=== PATIENT | female | born 1990 | race Caucasian/White ===

== ENCOUNTER 2023-11-04 09:14 | Inpatient (IN) | payer OTHER, SELFPAY ==
--- OUTSIDE RECORDS SUMMARY | 2023-11-04 09:23 | XMS_ITS | CCD ---
Author Organization [facility] Care Team Providers Care Working Supervisor Name Role Phone Yohana De Leon Primary Care Provider Unavailable Primary Care Provider Unavailabl e FLORO, FAY Primary Care Unavailable MISC, DR SANDOVAL Admitting Unavailable MISC, DR SANDOVAL Attending Unavailable MISC, DR SANDOVAL Consulting Unavailable FLORO, FAY Admitting Unavailable FLORO, FAY Attending Unavailable FLORO, FAY Consulting Unavailable FLORO, FAY Primary Care Unavailable Unavailable Primary Care Provider Unavailabl MICHELLE Ochoa Attending Unavailabl e Unavailable Primary Care Provider Unavailabl e EJESTHOLLY DUFF Attending Unavailable HIESTANDHOLLY Referring Unavailable HIESTHOLLY DUFF Primary Care Unavailable FLORO, JASMINA L Referring Unavailable FLORO, JASMINA L Attending Unavailable FLORO, JASMINA L Attending Unavailable FLORO, JASMINA L Attending Unavailable FLORO, JASMINA L Referring Unavailable FLORO, JASMINA L Attending Unavailable FLORO, JASMINA L Attending Unavailable FLORO, JASMINA L Attending Unavailable FLORO, JASMINA L Referring Unavailable FLORO, JASMINA L Attending Unavailable FLORO, JASMINA L Attending Unavailable FLORO, JASMINA L Attending Unavailable FLORO, JASMINA L Attending Unavailable FLORO, JASMINA L Attending Unavailable Allergies Allergy Classification Reported Allergen(s) Allergy Type Date of Onset Reaction(s) Facility Sulfamethoxazole / Trimethoprim (1 source) Sulfamethoxazole / Trimethoprim Drug Allergy 2 Rash [facility] (6 sources) Sulfamethoxazole / Trimethoprim; Translations: [SULFAMETHOXAZOLE-TR IMETHOPRIM] Drug All[facility] 2 [facility] (1 source) Sulfamethoxazole / Trimethoprim Drug Allergy 1 [facility] Repository Medications Current Medications Medication Drug Class(es) Dates Sig (Normalized) Sig (Original) acyclovir 400 mg oral tablet (3 sources) Herpesvirus Nucleoside Analog DNA Polymerase Inhibitor, Herpes Simplex Virus Nucleoside Analog DNA Polymerase Inhibitor, Herpes Zoster Virus Nucleoside Analog DNA Polymerase Inhibitor take 1 tablet by mouth once daily acyclovir (ZOVIRAX) 400 MG tablet Take 400 mg by mouth daily 0 Active aspirin 81 mg chewable tablet (2 sources) Platelet Aggregation Inhibitor, Nonsteroidal Anti-inflammatory Drug take 1 tablet by mouth once daily aspirin 81 MG chewable tablet Take 81 mg by mouth daily 0 Active cetirizine hydrochloride 10 mg oral tablet (5 sources) Histamine-1 Receptor Antagonist Start: 12-17-2015 take 1 tablet by mouth once daily cetirizine (ZYRTEC) 10 MG tablet Indications: Other seasonal allergic rhinitis Take 1 tablet by mouth daily 90 tablet 3 12/17/2015 Active dicyclomine hydrochloride 20 mg oral tablet (3 sources) Anticholinergic Start: 08-11-2018 take 1 tablet by mouth four times daily dicyclomine (BENTYL) 20 MG tablet Take 1 tablet by mouth 4 times daily for 7 days 28 tablet 0 08/11/2018 Active Inulin (3 sources) take 1 tablet by mouth once daily Inulin (FIBER CHOICE FRUITY BITES PO) Take 1 tablet by mouth daily 0 Active metFORMIN hydrochloride 500 mg oral tablet (2 sources) Biguanide Start: 01-25-2023 take 1 tablet by mouth in the morning metFORMIN (Glucophage) 500 MG tablet Indications: Weight gain , Irregular periods Take 1 tablet (500 mg) by mouth in the morning and 1 tablet (500 mg) in the evening. Take with meals. 60 tablet 2 01/25/2023 Active Multiple Vitamins-Minerals (THERAPEUTIC MULTIVITAMIN-MINERA LS) tablet (3 sources) take 1 tablet by mouth once daily Multiple Vitamins-Minerals (THERAPEUTIC MULTIVITAMIN-MINERA LS) tablet Take 1 tablet by mouth daily 0 Active ondansetron 8 mg disintegrating oral tablet (2 sources) Serotonin-3 Receptor Antagonist Start: 04-05-2023 End: 05-05-2023 take 1 tablet by mouth every eight hours for nausea ondansetron ODT (Zofran-ODT) 8 MG disintegrating tablet Indications: Nausea/vomiting in Take 1 tablet (8 mg) by mouth every 8 (eight) hours if needed for nausea or vomiting 20 tablet 1 04/05/2023 05/05/2023 Active Completed/Discontinued Medications Medication Drug Class(es) Dates Sig (Normalized) Sig (Original) acetaminophen 500 mg oral tablet (1 source) Start: 02-28-2021 End: 02-28-2021 acetaminophen (TYLENOL) tablet 1,000 mg Start: 02-28-2021 End: 02-28-2021 acetaminophen (TYLENOL) tabl et 1,000 mg ibuprofen 600 mg oral tablet (3 sources) Nonsteroidal Anti-inflammatory Drug Start: 04-23-2016 End: 02-28-2021 take 1 tablet by mouth every eight hours as needed for pain ibuprofen (ADVIL;MOTRIN) 600 MG tablet Take 1 tablet by mouth every 8 hours as needed for Pain 20 tablet 0 04/23/2016 02/28/2021 Discontinued (LIST CLEANUP) 50 ml sodium chloride 9 mg/ml injection (1 source) Start: 07-26-2020 End: 07-27-2020 0.9 % sodium chloride bolus Problems Active Problems Problem Classification Problem Date Documented Date Episodic/Chronic 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; Translations: [Other specified congenital malformations of intestine] Onset: 01-09-2016 01-09-2016 Chronic Nausea and vomiting (1 source) Nausea and vomiting; Translations: [Nausea with vomiting, unspecified] Episodic Other complications of (2 sources) Vaginal discharge; Translations: [Other specified related conditions, third trimester] 02-09-2021 Episodic Other injuries and conditions due to external causes (1 source) Injury of right wrist; Translations: [Unspecified injury of right wrist, hand and finger(s), initial encounter] Episodic Other injuries and conditions due to external causes (1 source) Unspecified injury of right wrist, hand and finger(s), initial encounter; Translations: [Unspecified injury of right wrist, hand and finger(s), initial encounter] Onset: 09-30-2022 Episodic Unclassified (2 sources) CONTACT W/AND (SUSP) EXPOS COVID-19; Translations: [CONTACT W/AND (SUSP) EXPOS COVID-19] Onset: 01-03-2021 Unclassified (1 source) COUGH, UNSPECIFIED; Translations: [COUGH, UNSPECIFIED] Onset: 01-03-2021 Viral infection (4 sources) COVID-19; Translations: [COVID-19] Onset: 01-02-2021 Past or Other Problems Problem Classification Problem Date Documented Date Episodic/Chronic Abdominal pain (4 sources) Right lower quadrant pain; Translations: [Right lower quadrant pain] Onset: 02-28-2021 Episodic Hemorrhoids (4 sources) External hemorrhoids; Translations: [Residual hemorrhoidal skin tags] Onset: 01-09-2016 01-09-2016 Episodic Immunizations and screening for infectious disease (1 source) Encounter for immunization; Translations: [ENCOUNTER FOR IMMUNIZATION] Onset: 01-15-2021 Episodic Other female genital disorders (4 sources) Irritable uterus; Translations: [Noninflammatory disorder of uterus, unspecified] Resolved: 08-05-2015 08-05-2015 Episodic Other and delivery including normal (6 sources) Delivery normal; Translations: [Encounter for full-term uncomplicated delivery] Onset: 03-12-2021 Resolved: 08-05-2015 08-05-2015 Episodic Residual codes; unclassified (4 sources) Gestation period, 35 weeks; Translations: [35 weeks gestation of ] Resolved: 08-05-2015 08-05-2015 Episodic Unclassified (1 source) CONTACT W/AND (SUSP) EXPOS COVID-19; Translations: [CONTACT W/AND (SUSP) EXPOS COVID-19] Onset: 12-31-2020 Results Test Name Value Interpretation Reference Range Facility US OB FOLLOW UP TRANSABDOMIN AL APPROACHon 09-01-2023 OB FOLLOW UP TRANSABDOMINAL APPROACH FINDINGS: A single, live intrauterine is present with normal cardiac rate of 145 beats per minute. Normal activity and amniotic fluid volume. Amniotic fluid index is 17 cm. Morphology is grossly normal. The cervix is long and closed, 3.9 cm. The placenta is posterior, not associated with the cervical os. The current sonographic age is 30 weeks and 0 days, based on the following measurements: BPD 7.4 cm (29 weeks, 5 days) Head Circumference 28.1 cm (30 weeks, 6 days) Abdominal Circumference 25.5 cm (29 weeks, 5 days) Femur Length 5.6 cm (29 weeks, 4 days) Presentation Breech Placenta Posterior Grade I Weight (g) by Percentile 39.4 % * These measurements result in an estimated date of delivery of November 10, 2023. The current estimated weight is 1453 grams (3 pounds, 3 ounces). IMPRESSION: 1. Single, live intrauterine , current sonographic age of 30 weeks and 0 days, with an estimated date of delivery of November 10, 2023 2. Current estimated weight 1453 grams (3 pounds, 3 ounces) 3. Breech presentation * Estimated Weight (g) by Percentile is based upon an accurate estimated age based on last menstrual period. TRANSCRIBED BY: ELECTRONICALLY SIGNED BY: Rob Blank MD Normal Not Available US OB 14+ WEEKS ANATOMY SCAN on 06-23-2023 US OB 14+ WEEKS ANATOMY SCAN FINDINGS: A single, live intrauterine is present with normal cardiac rate of 136 beats per minute. Normal activity and amniotic fluid volume. Amniotic fluid index is 15 cm. Morphology is grossly normal. The cervix is long and closed, 3.4 cm. The placenta is posterior, not associated with the cervical os. The current sonographic age is 19 weeks and 4 days, based on the following measurements: BPD 4.5 cm ( 19 weeks, 5 days) Head Circumference 17.1 cm (19 weeks, 5 days) Abdominal Circumference 14.4 cm (19 weeks, 5 days) Femur Length 3.0 cm ( 19 weeks,1 days) Presentation Cephalic Placenta posterior These measurements result in an estimated date of delivery of November 13, 2023 The current estimated weight is 295 grams +/- grams ( pound,10 ounces). Estimated weight by percentile 31.9% IMPRESSION: Single, live intrauterine , current sonographic age of 19 weeks and 4 days, with an estimated date of delivery of November 13, 2023. Prior estimated delivery was November 12, 2023 from April 05, 2023 examination. TRANSCRIBED BY: ELECTRONICALLY SIGNED BY: Rob Blank MD Normal Not Available US OB < 14 WEEKS EARLYon US OB < 14 WEEKS EARLY CLINICAL HISTORY: Amenorrhea. COMPARISON: 01/25/2023. TECHNIQUE: Transvaginal ultrasound was performed of the pelvis. RESULT: An approximately 3.1 cm in average dimension gestational sac is present within the left aspect of the uterine body/fundus, without significant surrounding subchorionic hemorrhage. Yolk sac visualized. Natural Steps rump length measures 1.9 cm, which corresponds to 8 weeks 3 days. The estimated date of delivery by measurements is: 11/12/2023. The estimated date of delivery by LMP is: 10/26/2023. cardiac activity measures approximately 174, without visualized arrhythmia. The cervix appears closed, measuring approximately 3.6 cm. Nabothian cysts. There is no significant free fluid, or other findings of concern. The uterus measures: 13.0 x 8.3 cm. The ovaries were not visualized secondary to bowel gas. IMPRESSION: SINGLE LIVE INTRAUTERINE CORRESPONDING TO 8 weeks 3 days NO OTHER FINDINGS OF CONCERN. ELECTRONICALLY SIGNED BY: Simeon Payton MD Normal Not Available US PELVIS TRANSVAGINALon US PELVIS TRANSVAGINAL FINDINGS: Transvaginal imaging Uterus measures 9.8 x 5.5 x 4.7 cm and is anteverted in orientation. Uterus normal in size, shape, and echogenicity. Endometrium normal measuring 10.5 mm. Nabothian cyst visualized. Right ovary measures 1.7 x 2.4 x 1.3 cm. Left ovary measures 2.5 x 2.0 x 1.7 cm. Bilateral ovaries normal in size, shape, echogenicity, and color flow. No free fluid No adnexal masses. IMPRESSION: Impression: Negative pelvic ultrasound. ELECTRONICALLY SIGNED BY: Basilio Luciano MD Normal Not Available No Panel Informationon 09-30 Radiology Study observation (narrative) [facility] XR SHOULDER RIGHT (MIN 2 VIE WS)on 09-30-2022 XR SHOULDER RIGHT (MIN 2 VIEWS) EXAMINATION: 2 XRAY VIEWS OF THE RIGHT SHOULDER 09/30/2022 12:05 am COMPARISON: None. HISTORY: ORDERING SYSTEM PROVIDED HISTORY: fall TECHNOLOGIST PROVIDED HISTORY: fall Initial evaluation. FINDINGS: No acute osseous abnormality seen of the right shoulder. The glenohumeral and acromioclavicular joints appear maintained without evidence of dislocation. The soft tissues demonstrate no acute abnormality. IMPRESSION: No acute fracture or dislocation clearly identified of the right shoulder. Interpreted by: Hubert Hoffman MD Signed by: Hubert Hoffman MD 09/30/22 Final result Normal [facility] No acute fracture or dislocation clearly identified of the right shoulder. [facility] R[facility] CONSOLIDATED EXAMINATION: 2 XRAY VIEWS OF THE RIGHT SHOULDER 09/30/2022 12:05 am COMPARISON: None. HISTORY: ORDERING SYSTEM PROVIDED HISTORY: fall TECHNOLOGIST PROVIDED HISTORY: fall Initial evaluation. FINDINGS: No acute osseous abnormality seen of the right shoulder. The glenohumeral and acromioclavicular joints appear maintained without evidence of dislocation. The soft tissues demonstrate no acute abnormality. [facility] Hubert Hoffman MD - 09/30/2022 EXAMINATION: 2 XRAY VIEWS OF THE RIGHT SHOULDER 09/30/2022 12:05 am COMPARISON: None. HISTORY: ORDERING SYSTEM PROVIDED HISTORY: fall TECHNOLOGIST PROVIDED HISTORY: fall Initial evaluation. FINDINGS: No acute osseous abnormality seen of the right shoulder. The glenohumeral and acromioclavicular joints appear maintained without evidence of dislocation. The soft tissues demonstrate no acute abnormality. IMPRESSION: No acute fracture or dislocation clearly identified of the right shoulder. [facility] XR WRIST RIGHT (MIN 3 VIEWS) on 09-30-2022 XR WRIST RIGHT (MIN 3 VIEWS) EXAMINATION: 3 XRAY VIEWS OF THE RIGHT WRIST 09/30/2022 12:05 am COMPARISON: None. HISTORY: ORDERING SYSTEM PROVIDED HISTORY: fall TECHNOLOGIST PROVIDED HISTORY: fall Initial evaluation. FINDINGS: There is question of cortical irregularity in the region of the scaphoid waist. Otherwise, the osseous structures appear intact. The joint spaces appear maintained. The soft tissues demonstrate no acute abnormality. IMPRESSION: 1. Question of cortical irregularity in the region of the scaphoid waist. Suggest correlation with snuffbox tenderness. 2. Otherwise, no acute osseous abnormality seen of the right wrist. Interpreted by: Hubert Hoffman MD Signed by: Hubert Hoffman MD 09/30/22 Final result Normal [facility] 1. Question of cortical irregularity in the region of the scaphoid waist. Suggest correlation with snuffbox tenderness. 2. Otherwise, no acute osseous abnormality seen of the right wrist. [facility] EXAMINATION: 3 XRAY VIEWS OF THE RIGHT WRIST 09/30/2022 12:05 am COMPARISON: None. HISTORY: ORDERING SYSTEM PROVIDED HISTORY: fall TECHNOLOGIST PROVIDED HISTORY: fall Initial evaluation. FINDINGS: There is question of cortical irregularity in the region of the scaphoid waist. Otherwise, the osseous structures appear intact. The joint spaces appear maintained. The soft tissues demonstrate no acute abnormality. [facility] Hubert Hoffman MD - 09/30/2022 EXAMINATION: 3 XRAY VIEWS OF THE RIGHT WRIST 09/30/2022 12:05 am COMPARISON: None. HISTORY: ORDERING SYSTEM PROVIDED HISTORY: fall TECHNOLOGIST PROVIDED HISTORY: fall Initial evaluation. FINDINGS: There is question of cortical irregularity in the region of the scaphoid waist. Otherwise, the osseous structures appear intact. The joint spaces appear maintained. The soft tissues demonstrate no acute abnormality. IMPRESSION: 1. Question of cortical irregularity in the region of the scaphoid waist. Suggest correlation with snuffbox tenderness. 2. Otherwise, no acute osseous abnormality seen of the right wrist. [facility] XR WRIST RIGHT (MIN 3 VIEWS) Ordered By: Hubert Hoffman on 09-30-2022 [facility] Work Phone: Hemoglobin A1Con 04-28-2021 EAG 91.06 Normal [facility] [employer] Clerk Comment on above: Performed By: #### A 1C #### [facility] [address] [place], [place] [id number] HbA1c (Bld) [Mass fraction] 4.8 % Normal 4.0-6.0 [facility] [employer] Clerk Comment on above: Performed By: #### A 1C #### [facility] [address] [place], [place] [id number] Q - INSULIN,SERUMon 04-28-19 22 INSULIN 4.0 uIU/mL Normal [facility] [employer] Clerk Comment on above: Order Comment: [facility] performed at: [facility], [facility], [address] [place] [address], [address] [place] [address], [id number], Piper Helper: Kendall Moyer MD [facility] Collection Date/Time: [id number] [facility] Results Received Date/Time: [id number] [facility] Reported Date/Time: [id number] FASTING: NO Result Comment: Refe rence Range < or = 19.6 Risk: Optimal < or = 19.6 Moderate NA High >19.6 Adult cardiovascular event risk category cut points (optimal, moderate, high) are based on [facility] population data from 02/2011. This insulin assay shows strong cross-reactivity for some insulin analogs (lispro, aspart, and glargine) and much lower cross-reactivity with others (detemir, glulisine). Performed By: #### 5 61, 746X, [id number] #### [facility] [address] [place] [address] Q - PROLACTINon 04-28-2021 PROLACTIN 195.3 ng/mL High [facility] Comment on above: Order Comment: [facility] performed at: [facility], [employer] [facility], [address] [facility], [address] [place], [address], Piper Helper: Kendall Moyer MD [facility] Collection Date/Time: [facility] Results Received Date/Time: [facility] Reported Date/Time: FASTING: NO Result Comment: Refe rence Range Females Non- 3.0-30.0 10.0-209.0 Postmenopausal 2.0-20.0 Performed By: #### 5 61, 746X, [id number] #### [facility] [address] [place] [address] Q - TESTOSTERONE,FREE (LC/MS /MS)on 04-28-2021 TESTOSTERONE, FREE 1.5 pg/mL Normal 0.2-5.0 [facility] Comment on above: Order Comment: [facility] performed at: [facility], [employer], [address], [place], [place], , Piper Helper: Vince Dan M.D.,PhD [facility] Collection Date/Time: [facility] Results Received Date/Time: [facility] Reported Date/Time: FASTING: NO Result Comment: The concentration of free testosterone is derived from a mathematical model using total testosterone by LCMSMS, sex hormone binding globulin and albumin. This test was developed and its analytical performance characteristics have been determined by [facility] [place], [place]. It has not been cleared or approved by the U.S. Food and Drug Administration. This assay has been validated pursuant to the CLIA regulations and is used for clinical purposes. Performed By: #### 5 61, 746X, [id number] #### [facility] [address] [place] [address] TSH w/ Reflex to Free T4on 0 04-28-2021 TSH 1.490 uIU/mL Normal 0.400-4.500 [facility] [employer] Clerk Comment on above: Performed By: #### T SH reflex FT4 #### [facility] [address] [place], [place] [id number] Microscopic Urinalysison - [facility] Amorphous, UA NOT REPORTED None [facility], [facility]A TRACE Abnormal None [facility] Casts UA NOT REPORTED /LPF [facility] Crystals, UA NOT REPORTED None /HPF [facility] th Epithelial Cells UA 2 TO 5 [facility] Interpretation and review of laboratory results Abnormal [facility] Mucus, UA NOT REPORTED None [facility] Other Observations UA NOT REPORTED NOT REQ. M [facility] RBC, UA 0 TO 2 [facility] Renal Epithelial, UA NOT REPORTED 0 /HPF [facility] Trichomonas, UA NOT REPORTED None [facility] WBC, UA 2 TO 5 [facility] Yeast, UA NOT REPORTED None [facility] Q - SURESWAB HSV 1/2 mRNA TM Aon 02-28-2021 HSV 1 Not detected Normal Not Detected [facility] [employer] Clerk Comment on above: Order Comment: [facility] performed at: [facility], [facility] [address], [place], [place], , Piper Helper: Vince Dan M.D.,PhD [facility] Collection Date/Time: [facility] Results Received Date/Time: [facility] Reported Date/Time: Performed By: #### 9 0570 #### [facility] [address] [place] [address] HSV 2 Not detected Normal Not Detected [facility] [employer] Clerk Comment on above: Order Comment: [facility] performed at: [facility], [address], [place], [place], , Piper Helper: Vince Dan M.D.,PhD [facility] Date/Time: [facility] Results Received Date/Time: [id number] [facility] Reported Date/Time: [id number] Performed By: #### 9 0570 #### [facility] [address] [place] [address] Urinalysison 02-28-2021 Bilirubin Urine Negative NEGATIVE [facility] Color, UA Yellow Yellow [facility] Glucose, Ur Negative NEGATIVE [facility] Interpretation and review of laboratory results Abnormal [facility] Ketones Ql (U) TRACE Abnormal NEGATIVE [facility] Leukocyte esterase Test strip Ql (U) Negative NEGATIVE [facility] Nitrite, Urine Negative NEGATIVE [facility] pH, UA 6.0 [facility] Protein, UA Negative NEGATIVE [facility] Specific [place], UA >1.030 [facility] Turbidity UA Clear Clear [facility] Urinalysis Comments NOT REPORTED [facility] Urine Hgb Negative NEGATIVE [facility] Urobilinogen, Urine Normal Normal [facility] Urinalysison 02-08-2021 Bilirubin Urine Negative NEGATIVE [facility] Color, UA Yellow Yellow [facility] Glucose, Ur Negative NEGATIVE [facility] Ketones Ql (U) Negative NEGATIVE [facility] Leukocyte esterase Test strip Ql (U) Negative NEGATIVE [facility] Nitrite, Urine Negative NEGATIVE [facility] pH, UA 6.0 [facility] Protein, UA Negative NEGATIVE [facility] Specific [place], UA 1.020 [facility] Turbidity UA Clear Clear [facility] Urinalysis Comments NOT REPORTED [facility] Urine Hgb Negative NEGATIVE [facility] Urobilinogen, Urine Normal Normal [facility]20 SARS-CoV-2 (COVID-19) RNA FRANK+probe Ql (Unsp spec) Detected Critically abnormal NOT DETECTED [facility] Comment on above: Result Comment: This test is not yet approved or cleared by the [place] FDA. When there are no FDA-approved or cleared tests available, and other criteria are met, FDA can make tests available under an emergency access mechanism called an Emergency Use Authorization (EUA). The EUA for this test is supported by the [place] of Health and Human Service's (HHS's) declaration that circumstances exist to justify the emergency use of in vitro diagnostics for the detection and/or diagnosis of the virus that causes COVID-19. This EUA will remain in effect (meaning this test can be used) for the duration of the COVID-19 declaration justifying emergency of IVDs, unless it is terminated or revoked by FDA (after which the test may no longer be used). Performed By: #### C [facility] #### [facility] [address] [address] [address] Milena Chiu ABO, External ResultOrdered By: Rose Marie Hurd on 08-20-2020 ABO, External Result [employer] C. Trachomatis, External Res ulvirtua [facility] 08-20-2020 C. Trachomatis, External Result Not detected [employer] Phone: HIV, External Resulton 08-20 HIV, External Result Non-Reactive [employer] Phone: Hepatitis B, External Result on 08-20-2020 Hep B, External Result Negative [employer] Phone: N. Gonorrhoeae, External Res ulton 08-20-2020 N. Gonorrhoeae, External Result Not detected [employer] Phone: No Panel InformationOrdered By: Rose Marie Hurd on 08-20-2020 [employer] No Panel Informationon 08-20 [employer] Phone: RPR, External Labon 08-21-19 21 RPR, External Result Non-Reactive [employer] Phone: Rh Factor, External Resulton 08-20-2020 Rh Factor, External Result Positive [employer] Phone: Rubella Titer, External Resu lton 08-20-2020 Rubella Titer, External Result not immune [employer] Phone: COVID-19, RapidOrdered By: Hilaria Brooks on 07-27-2020 SARS-CoV-2 (COVID-19) RNA FRANK+probe Ql (Unsp spec) Not detected Not Detected [employer] Phone: Comment on above: Rapid NAAT: The specimen is NEGATIVE for SARS-CoV-2, the novel coronavirus associated with COVID-19. The ID NOW COVID-19 assay is designed to detect the virus that causes COVID-19 in patients with signs and symptoms of infection who are suspected of COVID-19. An individual without symptoms of COVID-19 and who is not shedding SARS-CoV-2 virus would expect to have a negative (not detected) result in this assay. Negative results should be treated as presumptive and, if inconsistent with clinical signs and symptoms or necessary for patient management, should be tested with an alternative molecular assay. Negative results do not preclude SARS-CoV-2 infection and should not be used as the sole basis for patient management decisions. Fact sheet for Healthcare Providers: https://www.fda.gov/media/571748/download Fact sheet for Patients: https://www.fda.gov/media/549556/download Methodology: Isothermal Nucleic Acid Amplification Specimen Description .NASOPHARYNGEAL SWAB [employer] Phone: Rapid influenza A/B antigens Ordered By: Rodrigo Brooks on 07-27-2020 Direct Exam NEGATIVE for Influenza A + B antigens. PCR testing to confirm this result is available upon request. Specimen will be saved in the laboratory for 7 days. Please call [phone] if PCR testing is indicated. [employer] Phone: Special Requests NOT REPORTED [employer] Phone: Specimen Description .NASOPHARYNGEAL SWAB [employer] Phone: CBC auto differentialOrdered By: Rodrigo Brooks on 07-26-2020 Absolute Eos # 0.09 [facility] Work Phone: Absolute Immature Granulocyte <0.03 [employer] Work Phone: Absolute Lymph # 2.93 [facility] Work Phone: Absolute Stark # 0.57 [facility] Work Phone: Basophils (Bld) [#/Vol] 10*3/uL [employer] Work Phone: Basophils/100 WBC (Bld) 0 % 0 - 2 % [employer] Phone: Differential Type NOT REPORTED [employer] Phone: Eosinophils/100 WBC (Bld) 1 % 1 - 4 % [employer] Phone: Hematocrit (Bld) [Volume fraction] 42.1 % 36.3 - 47.1 % [employer] Phone: Hemoglobin.gastrointes tinal spec 1 Ql (Stl) 14.5 g/dL 11.9 - 15.1 g/dL [employer] Phone: Immature granulocytes/100 WBC (Bld) 0 % 0 [employer] Phone: Lymphocytes/100 WBC (Bld) 35 % 24 - 43 % [employer] Phone: MCH (RBC) [Entitic mass] 32.0 pg 25.2 - 33.5 pg [employer] Phone: MCHC (RBC) [Mass/Vol] 34.4 g/dL 28.4 - 34.8 g/dL [employer] Phone: MCV (RBC) [Entitic vol] 92.9 fL 82.6 - 102.9 fL [employer] Phone: Monocytes/100 WBC (Bld) 7 % 3 - 12 % [employer] Phone: NRBC Automated 0.0 0.0 per 100 WBC [employer] Phone: Platelet distribution width (Bld) [Ratio] 12.9 % 11.8 - 14.4 % [employer] Phone: Platelet Estimate NOT REPORTED [employer] Phone: Platelet mean volume (Bld) [Entitic vol] 11.4 fL 8.1 - 13.5 fL [employer] Phone: Platelets (Bld) [#/Vol] 199 10*3/uL [employer] Phone: RBC (Bld) [#/Vol] 4.53 10*6/uL 3.95 - 5.1 1 m/uL [employer] Work Phone: RBC (Bld) [#/Vol] NOT REPORTED [employer] Work Phone: Segmented neutrophils/100 WBC (Bld) 57 % 36 - 65 % [employer] Work Phone: Segs Absolute 4.80 [employer] Work Phone: WBC (Bld) [#/Vol] 8.4 10*3/uL [employer] Work Phone: WBC (Bld) [#/Vol] NOT REPORTED [employer] Work Phone: Comprehensive Metabolic Pane lOrdered By: Rodrigo Brooks on 07-26-2020 Albumin [Mass/Vol] 4.3 g/dL 3.5 - 5.2 g/dL [employer] Phone: Albumin/Globulin [Mass ratio] 1.4 {ratio} [employer] Work Phone: ALP (Bld) [Catalytic activity/Vol] 54 U/L 35 - 104 U/L [employer] Phone: ALT [Catalytic activity/Vol] 17 U/L 5 - 33 U/L [employer] Phone: Anion gap [Moles/Vol] 8 mmol/L Low 9 - 17 mmol/L [employer] Phone: AST [Catalytic activity/Vol] 12 U/L <32 [employer] Phone: Bilirubin [Mass/Vol] 0.27 mg/dL Low 0.3 - 1 .2 mg/dL [employer] Phone: Calcium [Mass/Vol] 9.6 mg/dL 8.6 - 10. 4 mg/dL [employer] Work Phone: Chloride [Moles/Vol] 104 mmol/L 98 - 10 7 mmol/L [employer] Phone: CO2 [Moles/Vol] 25 mmol/L 20 - 31 mmol/L [employer] Phone: Creatinine [Mass/Vol] 0.67 mg/dL 0.50 - 0.90 mg/dL [employer] Phone: Free PSA/Total PSA [Mass fraction] 7.3 g/dL 6.4 - 8.3 g/dL [employer] Phone: GFR >60 >60 mL/min [employer] Phone: GFR Non- >60 >60 mL/min [employer] Phone: Glucose [Mass/Vol] 90 mg/dL 70 - 99 mg/dL [employer] Phone: Interpretation and review of laboratory results Abnormal [employer] Phone: Potassium [Moles/Vol] 3.8 mmol/L 3.7 - 5.3 mmol/L [employer] Phone: Sodium [Moles/Vol] 137 mmol/L 135 - 144 mmol/L [employer] Phone: Urea nitrogen (BldV) [Mass/Vol] 10 mg/dL 6 - 20 mg/dL [employer] Phone: Urea nitrogen/Creatinine (Bld) [Mass ratio] 15 [employer] Phone: Laboratory - Chemistry and C hemistry - challengeOrdered By: Rodrigo Brooks on 07-26-2020 GFR/1.73 sq M.predicted MDRD (S/P/Bld) [Vol rate/Area] [employer] Phone: Comment on above: Average GFR for 30-3 9 years old: 107 mL/min/1.73sq m Chronic Kidney Disease: <60 mL/min/1.73sq m Kidney failure: <15 mL/min/1.73sq m eGFR calculated using average adult body mass. Additional eGFR calculator available at: http://www.Yadio.MeetDoctor/multiple_crcl_2012.htm Stage 1: Some kidney damage normal GFR Stage 2: Mild kidney damage GFR 60-89 Stage 3: Moderate kidney damage GFR 30-59 Stage 4: Severe kidney damage GFR 15-29 Stage 5: Severe kidney damage GFR <15 ESRD - chronic treatment by dialysis or transplant Lactic Acid, PlasmaOrdered B y: Rodrigo Brooks on 07-26-2020 Lactate [Moles/Vol] 1.8 mmol/L 0.5 - 2. 2 mmol/L [employer] Work Phone: Lactic Acid, Whole Blood NOT REPORTED 0.7 - 2.1 mmol/L [employer] Work Phone: Urinalysis with microscopicO rdered By: Rodrigo Brooks on 07-26-2020 - [employer] Work Phone: Amorphous, UA NOT REPORTED None [facility] [employer] Work Phone: Bacteria, UA NOT REPORTED None [employer] Work Phone: Bilirubin Urine Negative NEGATIVE [facility] Work Phone: Casts UA NOT REPORTED /LPF [employer] Work Phone: Color, UA YELLOW YELLOW [employer] Work Phone: Crystals, UA NOT REPORTED None /HPF [employer] Work Phone: Epithelial Cells UA 0 TO 2 [employer] Work Phone: Glucose, Ur Negative NEGATIVE [employer] Work Phone: Ketones Ql (U) Negative NEGATIVE [employer] Work Phone: Leukocyte esterase Test strip Ql (U) Negative NEGATIVE [employer] Work Phone: Mucus, UA NOT REPORTED None [employer] Work Phone: Nitrite, Urine Negative NEGATIVE [facility] Work Phone: Other Observations UA NOT REPORTED NOT REQ. M [facility] [employer] Work Phone: pH, UA 6.0 [facility] [employer] Work Phone: Protein, UA Negative NEGATIVE [facility] [employer] Work Phone: RBC, UA None [facility] [employer] Work Phone: Renal Epithelial, UA NOT REPORTED 0 /HPF [facility] [employer] Work Phone: Specific [place], UA 1.010 [facility] [employer] Work Phone: Trichomonas, UA NOT REPORTED None [facility] Work Phone: Turbidity UA CLEAR CLEAR [facility] [employer] Work Phone: Urinalysis Comments NOT REPORTED [facility] [employer] Work Phone: Urine Hgb Negative NEGATIVE [facility] [employer] Work Phone: Urobilinogen, Urine Normal Normal [facility] [employer] Work Phone: WBC, UA None [facility] [employer] Work Phone: Yeast, UA NOT REPORTED None [facility] [employer] Work Phone: Vital Signs Date Time Vital Sign Value Performing Clinician Faci lity 09-29-2022 23:04-0400 Body temperature 98.2 [degF] Michelle Rouse MD Work Phone: [employer] 09-29-2022 23:04-0400 Diastolic blood pressure 89 mm[Hg] Michelle Rouse MD Work Phone: [employer] 09-29-2022 23:04-0400 Heart rate 92 /min Michelle Rouse MD Work Phone: [facility] [employer] 09-29-2022 23:04-0400 Respiratory rate 18 /min Michelle Rouse MD Work Phone: [facility] [employer] 09-29-2022 23:04-0400 SaO2% (BldA) [Mass fraction] 100 % Michelle [facility]ouse MD [facility] 09-29-2022 23:04-0400 Systolic blood pressure 146 mm[Hg] Michelle Rouse MD Work Phone: [facility] 02-28-2021 11:33-0500 Body height 162.6 cm Mounaanaya Neelyelling [employer] - CNM [facility] 02-28-2021 11:33-0500 Body mass index (BMI) [Ratio] 41.2 kg/m2 Mouna Neelyelling [employer] - CNM Work [facility] 02-28-2021 11:33-0500 Body temperature 97.81 [degF] Mounaanaya Neelyelling [employer] - CNM [facility] 02-28-2021 11:33-0500 Body weight 108.86 kg Mouna Neelyelling [employer] - CNM [facility] 02-28-2021 11:33-0500 Diastolic blood pressure 77 mm[Hg] Mouna Neelyelling [employer] - CNM [facility] 02-28-2021 11:33-0500 Heart rate 96 /min Mouna Neelyelling [employer] - CNM [facility] 02-28-2021 11:33-0500 Respiratory rate 16 /min Mouna Hotelling [employer] - CNM [facility] 02-28-2021 11:33-0500 Systolic blood pressure 120 mm[Hg] Mouna Florindaelling [employer] - CNM [facility] 02-09-2021 02:07-0500 Body temperature 98.01 [degF] Ekaterina Pool [employer] - CNM [facility] 02-09-2021 02:07-0500 Diastolic blood pressure 62 mm[Hg] Ekaterina Pool [employer] - CNM Work Phone: [employer] 02-09-2021 02:07-0500 Heart rate 73 /min Ekaterina Pool [employer] - CNM Work Phone: [employer] 02-09-2021 02:07-0500 Systolic blood pressure 124 mm[Hg] Ekaterina Pool [employer] - CNM Work Phone: [employer] 02-08-2021 22:51-0500 Respiratory rate 16 /min Ekaterina Pool [employer] - CNM Work Phone: [employer] 07-26-2020 23:19-0400 Diastolic blood pressure 54 mm[Hg] Rodrigo Brooks MD Work Phone: [employer] Work Phone: 07-26-2020 23:19-0400 Heart rate 83 /min Rodrigo Brooks MD Work Phone: [employer] Work Phone: 07-26-2020 23:19-0400 SaO2% (BldA) [Mass fraction] 100 % Rodrigo Brooks MD Work Phone: [employer] Work Phone: 07-26-2020 23:19-0400 Systolic blood pressure 132 mm[Hg] Rodrigo Brooks MD Work Phone: [employer] Work Phone: 07-26-2020 20:52-0400 Body temperature 98.2 [degF] Rodrigo Brooks MD Work Phone: [employer] Work Phone: 07-26-2020 20:52-0400 Respiratory rate 17 /min Rodrigo Brooks MD Work Phone: [employer] Work Phone: Encounters Encounter Date Encounter Type Care Provider Facility Start: 11-01-2023 ambulatory JASMINA L FLORO Not Sima ilable Start: 10-27-2023 End: 10-27-2023 ambulatory JASMINA L FLORO Not Available Start: 10-21-2023 End: 10-21-2023 ambulatory JASMINA L FLORO Not Available Start: 10-05-2023 End: 10-05-2023 ambulatory JASMINA L FLORO Not Available Start: 09-20-2023 End: 09-20-2023 ambulatory JASMINA L FLORO Not Available Start: 09-06-2023 End: 09-06-2023 ambulatory [facility] Start: 09-01-2023 End: 09-01-2023 ambulatory JASMINA L FLORO Not Available Start: 08-18-2023 End: 08-18-2023 ambulatory JASMINA L FLORO Not Available Start: 07-20-2023 End: 07-20-2023 ambulatory JASMINA L FLORO Not Available Start: 06-23-2023 End: 06-23-2023 ambulatory JASMINA L FLORO Not Available Start: 05-25-2023 End: 05-25-2023 ambulatory JASMINA L FLORO Not Available Start: 05-03-2023 Telephone encounter Jasmina L Floro CNM Work Phone: [facility] Start: 04-27-2023 End: 04-27-2023 ambulatory JASMINA L FLORO Not Available Start: 04-27-2023 Bamboo flowsheet Jasmina L Lauro ro CNM Work Phone: [facility] Start: 04-27-2023 Bamboo flowsheet Jasmina L Lauro ro CNM Work Phone: [facility] Start: 04-05-2023 End: 04-05-2023 ambulatory JASMINA L FLORO Not Available Start: 09-30-2022 End: 09-30-2022 Emergency department patient visit MICHELLE ROUSE [facility] Start: 09-29-2022 End: 09-30-2022 Emergency department patient visit Michelle Rouse MD Work Phone: [facility] ED Comment on above: Injury of right wris t, initial encounter (Primary Dx) Start: 02-28-2021 End: 02-28-2021 Subsequent hospital visit by physician Mouna Sparks [employer] - CNM Work Phone: [facility] Start: 02-08-2021 End: 02-09-2021 Subsequent hospital visit by physician Ekaterina Wilson [employer] - CNM Work Phone: [facility] Start: 01-02-2021 End: 01-02-2021 ambulatory [facility] Facility:H1 Start: 12-31-2020 End: 12-31-2020 ambulatory [facility] Facility: Start: 07-26-2020 End: 07-27-2020 Emergency department patient visit Rodrigo Brooks MD Work Phone: [facility] ED Comment on above: Nausea and vomiting, intractability of vomiting not specified, unspecified vomiting type (Primary Dx); Right lower quadrant abdominal pain Procedures Date Procedure Procedure Detail Performing Clinician Start: 09-30-2022 End: 09-30-2022 Radex shoulder complete minimum 2 views Michelle Rouse MD Work Phone: Start: 02-28-2021 Urinalysis microscopic only Mouna Sparks [employer] - CNM Work Phone: Start: 02-28-2021 Urnls dip stick/tabl et rgnt auto w/o microscopy Mouna Sparks [employer] - CNM Work Phone: Start: 02-08-2021 Urnls dip stick/tabl et rgnt auto w/o microscopy Ekaterina Wilson [employer] - CNM Work Phone: Start: 08-20-2020 ABO, EXTERNAL RESULT Ej pérez Provider Start: 08-20-2020 C. TRACHOMATIS, EXTE RNAL RESULT Historical Provider Start: 08-20-2020 HEPATITIS B, EXTERNA L RESULT Historical Provider Start: 08-20-2020 HIV, EXTERNAL RESULT Ej Stokes MD Start: 08-20-2020 N. GONORRHOEAE, EXTE RNAL RESULT Historical Provider Start: 08-20-2020 RH FACTOR, EXTERNAL RESULT Historical Provider Start: 08-20-2020 RPR, EXTERNAL RESULT Hi storical Provider Start: 08-20-2020 RUBELLA TITER, EXTER NAL RESULT Historical Provider Start: 07-26-2020 Comprehensive metabo lic panel Rodrigo Brooks MD Work Phone: Start: 07-26-2020 Urnls dip stick/tabl et reagent auto microscopy Rodrigo Brooks MD Work Phone: Start: 07-26-2020 COVID-19, RAPID Rodrigo Brooks MD Work Phone: Start: 07-26-2020 Iaadiadoo influenza Cip chalo Brooks MD Work Phone: Start: 12-17-2015 Microscopic observat ion [Identifier] in Cervix by Cyto stain Ekaterina Wilson [employer] - CNM Work Phone: Plan of Treatment Date Care Activity Detail Author Start: 05-25-2023 End: 05-25-2023 Patient encounter procedure 05/25/2023 4:30 PM EST Routine [facility] [address] [place] [id number] Jasmina Madrid, [facility] [address] [place] [address] [facility] Start: 04-27-2023 End: 04-27-2023 Patient encounter procedure 04/27/2023 4:30 PM EST Routine [facility] [address] [place] [id number] Jasmina Madrid, [facility] [address] [place] [address] Arrived [facility] Comment on above: Arrived Start: 10-20-2022 Influenza vaccination Flu vaccine (# 1) [facility] Start: 11-20-2020 Influenza vaccination [facility] Start: 09-19-2019 Screening for malign ant neoplasm of cervix [employer] Start: 12-16-2018 Screening for malign ant neoplasm of cervix [facility] [employer] Start: 2008 DTaP/Tdap/Td vaccine (1 - Tdap) DTaP/Tdap/Td vaccine (1 - Tdap) [facility] Start: 09-19-2007 Hepatitis C screening Hepatitis C sc reen [facility] [employer] Start: 2005 COVID-19 Vaccine (1) COVID-19 Vaccin e (1) [facility] Phone: Start: 2001 COVID-19 Vaccine (1) COVID-19 Vaccin e (1) [facility] Start: 2001 Depression Screen Depression Screen [facility] Start: 1994 COVID-19 Vaccine (1) COVID-19 Vaccin e (1) [facility] Start: 1990 Varicella vaccine (1 of 2 - 2-dose childhood series) Varicella vaccine (1 of 2 - 2-dose childhood series) [facility] Start: 03-20-1990 COVID-19 Vaccine (#1) COVID-19 Vacci ne (#1) [facility] Start: 1989 Hepatitis C screening [facility]atitis [facility] End: 02-28-2021 Bacteria identified in Urine by Culture Urine culture Microbiology Routine One Time for 1 Occurrences starting 02/28/2021 until 02/28/[address] [facility] Phone: Comment on above: One Time for 1 Occur rences starting 02/28/2021 until 02/28/2021 Nonrebreather mask oxygen Nonreb reather mask oxygen Respiratory Care Routine As directed - RT (PRN) until discontinued starting 02/08/2021 [employer] Phone: Comment on above: As directed - RT (KS N) until discontinued starting 02/08/2021 Nonrebreather mask oxygen Nonreb reather mask oxygen Respiratory Care Routine As directed - RT (PRN) until discontinued starting 02/28/2021 [employer] Phone: Comment on above: As directed - RT (KS N) until discontinued starting 02/28/2021 End: 02-08-2021 SVE SVE Point of Care Testing Routine One Time for 1 Occurrences starting 02/08/2021 until 02/08/2021 [employer] Phone: Comment on above: One Time for 1 Occur rences starting 02/08/2021 until 02/08/2021 End: 02-28-2021 SVE SVE Point of Care Testing Routine One Time for 1 Occurrences starting 02/28/2021 until 02/28/2021 [employer] Phone: Comment on above: One Time for 1 Occur rences starting 02/28/2021 until 02/28/2021 Payers Date Payer Category Payer Medicaid [employer] [place] [employer] [id number] 2022-Present [address] [place] [address] [id number] 1989 Unknown [id number] 1989 Unknown [id number] [id number] 1989 Unknown [id number] [id number] 1989 Unknown [id number] [id number]86 1989 Unknown [id number] 2.16.840.1.167106.3.579.2.1259 1989 Unknown [id number] 2.16.840.1.789621.3.579.2.9 1989 Unknown [id number] 2.16.840.1.119302.3.579.2.1259 1989 Unknown [id number] 2.16.840.1.998118.3.579.2.1259 1989 Unknown [id number] 2.16.840.1.415084.3.579.2.9 1989 Unknown [id number] 2.16.840.1.116054.3.579.2.9 1989 Unknown [id number] 2.16.840.1.881974.3.579.2.9 1989 Unknown [id number] 2.16.840.1.652141.3.579.2.1258 1989 Unknown [id number] 2.16.840.1.735894.3.579.2.9 1989 Unknown [id number] 2.16.840.1.817965.3.579.2.1258 1989 Unknown [id number] 2.16.840.1.297912.3.579.2.9 1989 Unknown [id number] 2.16.840.1.650029.3.579.2.1258 1989 Unknown [id number] 2.16.840.1.454692.3.579.2.1258 1989 Unknown [id number] 2.16.840.1.767794.3.579.2.9 1959 Unknown [id number] [id number] Social History Date Type Detail Facility Start: 07-26-2020 End: 01-25-2023 Tobacco smoking status [facility] Never smoker [employer] Phone: Start: 07-26-2020 End: 01-25-2023 Tobacco use and exposure Never used [employer] Start: 07-26-2020 End: 02-28-2021 Alcohol intake Current drinker of alcohol (finding) [employer] Phone: Start: 08-11-2018 Alcohol Comment rarely [employer] Phone: Start: 1990 Sex Assigned At Not on file [employer] Phone: Exposure to SARS-CoV -2 (event) Not sure [employer] Start: 06-23-2020 [employer] Work Phone: Start: 03-13-2021 Alcohol intake Ex-drinker (finding) [facility] [employer] Start: 09-30-2022 History SDOH Alcohol Frequency 1 [facility] [employer] Start: 04-05-2023 Alcohol intake Lifetime non-drinker (finding) [facility] Start: 01-25-2023 History of Social function [facility] Start: 01-25-2023 Tobacco use panel [facility] Start: 01-17-2023 Alcohol Comment caffeine: none [facility] Start: 1990 Sex Assigned At Female [facility] Start: 01-18-2023 Gender identity Identifies as female gender (finding) [facility] Start: 01-18-2023 Sexual orientation Heterosexual (finding) [facility] Telephone encounter Note 05-03-2023 Telephone Encounter - Dhara Ragsdale - 05/03/2023 1:10 PM EST Note Date & Type Note Facility 05-03-2023 Telephone encount er Note Pt is calling to discuss her recent lab s. She has a few questions about them. [facility] Note 05-03-2023 Telephone Encounter - Dhara Ragsdale - 05/03/2023 1:10 PM EST Note Date & Type Note Facility 05-03-2023 Miscellaneous Notes Formattin g of this note might be different from the original. Pt is calling to discuss her recent lab s. She has a few questions about them. documented in this encounter [facility] Hospital Discharge instructions 09-30-2022 Discharge InstructionsAttachments Note Date & Type Note Facility 09-30-2022 Hospital Discharg e instructions Michelle Rouse MD - 09/30/2022 1:52 AM EDT Thank you for trusting us with your care today. You may use tylenol or ibuprofen as needed for pain. Please also make sure to follow-up with Dr Phelan as you will need to have repeat X-rays in a week for concern for a possible fracture on one of the wrist bones. Please make an appointment with your primary care doctor for reevalaution in 1-4 days. Please return to the emergency department for any new concerning or worsening symptoms. The following attachments cannot be sent through Care Everywhere.Wrist Sprain (Latvian)documented in this encounter [facility] Discharge instructions 02-28-2021 Instructions Note Date & Type Note Facility 02-28-2021 Hospital Discharg e instructions Salima Olivo RN - 02/28/[address] Carolina Wilson [facility] Dr. Shalini Camejo CN [address] [facility] [address] [facility] [address] [address] Shalini Saucedo CN [address] [facility] [address] [phone] Bessy Madrid, MSN, [employer], CNM [facility] [address] [facility] [address] [address] Hodgson [address] [facility] [address] Mouna Sparks CN [address] [place] [address] [place] [address] Mary Carmen Mathias CN [address] [place] [address] [place] [address] [phone] ACTIVITY LIMITATIONS: (X )Up and about as desired and tolerated ( )Up to bathroom only (X )Lay on either side (X )Avoid heavy lifting or exercise (X )No sex ( X )No nipple stimulation ( )Complet bedrest ( )Avoid using stairs ( X )Increase fluids DRINK AT LEAST eight-8oz. Glasses of water daily. Call your Doctor if: (X )Contractions are every 5 minutes apart (from start of one to the start of the next contraction) lasting 60 seconds for at least 1 hour, strong enough you can not walk or talk through the contraction and regular. (X )Bag of water breaks ( X)Vaginal bleeding (X )Unusual pain occurs (X )Decreased movement Keep your scheduled follow up appointment. Or call for a follow up on . IN CASE OF EMERGENCY CONTACT LABOR AND DELIVERY . documented in this encounter [employer] Phone: History of Present illness Narrative 02-09-2021 Dasha Helms RN - 02/09/2021 2:40 AM Jose A Helms RN - 02/09/2021 2:37 AM Jose A Helms RN - 02/09/2021 1:57 AM Jose A Helms RN - 02/08/2021 11:06 PM EST Note Date & Type Note Facility 02-09-2021 History of Present illness Narrative Pt and friend left unit ambulatory at this time. Pt agreeable with POC. Discharge instructions given at this time. Wheelchair offered, pt denies need, states I can walk. Pt denies feeling further leaking of fluid, states she still feels occassional tightening, but denies pain. Amnioswab negative at this time. Amnioswab negative at this time. No fluid noted on perineum prior to exam. SVE as documented. No fluid/blood noted on glove after SVE. Pt arrived to OB dept with c/o leaking of fluid since last night. States she woke up on multiple occassions throughout the night and her underwear were damp. Pt denies sexual intercourse in the last 24 hours. States she had a panty liner on throughout the day and prior to arrival she changed it. Stated it was fairly saturated. Pt states she has been feeling the baby move, but he is not as active as usual. Denies vaginal bleeding. States she has been feeling naida ledbetter ctx, but they just feel tight, she doesn't feel any pain with them. Instructed to change into a gown and provide a urine specimen if able. Pt agreed and denies further questions/concerns at this time. [facility] [employer] Phone: Evaluation note Note Date & Type Note Facility Evaluation note Diagnosis Nausea and vomiting, intractability of vomiting not specified, unspecified vomiting type- Primary Right lower quadrant abdominal pain Abdominal pain, right lower quadrant [facility] Phone: Evaluation note Note Date & Type Note Facility Evaluation note Diagnosis Abdominal cramps Abdominal pain, unspecified site [facility] [employer] Phone: Evaluation note Note Date & Type Note Facility Evaluation note Diagnosis Injury of right wrist, initial encounter- Primary documented in this encounter [facility] Discharge instructions Attachments Note Date & Type Note Facility Hospital Discharge instructions The following attachments cannot be sent through Care Everywhere.Abdominal Pain (Latvian): Abdominal Pain (Latvian)documented [facility] Phone: Hospital Discharge instructions Instructions Note Date & Type Note Facility Hospital Discharge instructions Dasha Helms RN - 02/09/2021 OUTPATIENT DISCHARGE Demetria PRADHAN [address] [facility] [address] [facility] [address] [place] or Donte Bessy [place], MSN, PLASTIC BUBBLE PACKER, CNM [address] [address] ACTIVITY LIMITATIONS: ( x )Up and about as desired and tolerated ( )Up to bathroom only ( )Lay on either side ( )Avoid heavy lifting or exercise ( )No sex ( )No nipple stimulation ( )Complete bedrest ( )Avoid using stairs ( x )Increase fluids DRINK AT LEAST eight-8oz. Glasses of water daily. Call your Doctor if: ( x )Contractions are every 5 minutes apart (from start of one to the start of the next contraction) lasting 60 seconds for at least 1 hour, strong enough you can not walk or talk through the contraction and regular. ( x )Bag of water breaks ( x )Vaginal bleeding ( x )Unusual pain occurs ( x )Decreased movement ( x ) labor: If you have 4 contractions in an hour Keep your scheduled follow up appointment. IN CASE OF EMERGENCY CONTACT LABOR AND DELIVERY . 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 Latest Code Status on File Code Status Date Activated Date Inactivated Comments Full Code 05/15/2014 9:52 AM 05/16/2014 10:00 PM Full Code 05/15/2014 9:19 AM 05/15/2014 9:52 AM Full Code 05/14/2014 8:44 AM 05/15/2014 9:19 AM Latest Code Status on File Code Status Date Activated Date Inactivated Comments Full Code 02/08/2021 10:41 PM Full Code 05/15/2014 9:52 AM 05/16/2014 10:00 PM Latest Code Status on File Code Status Date Activated Date Inactivated Comments Full Code 02/28/2021 11:22 AM Full Code 02/08/2021 10:41 PM 02/09/2021 5:33 AM Latest Code Status on File Code Status Date Activated Date Inactivated Comments Full Code 03/13/2021 12:36 PM 03/14/2021 9:46 PM Code Status History Code Status Date Activated Date Inactivated Comments Full Code 03/12/2021 5:58 AM 03/13/2021 12:36 PM Full Code 02/28/2021 11:22 AM 02/28/2021 4:01 PM Full Code 02/08/2021 10:41 PM 02/09/2021 5:33 AM Full Code 05/15/2014 9:52 AM 05/16/2014 10:00 PM Summary Purpose Family History No Family History Records FoundNo Family History Records FoundNo Family History Records FoundNo Family History Records FoundNo Family History Records Found Additional Source Comments Reason for Visit (unrecogniz ed section and content) Reason Comments Emesis states 7 weeks pregn ant Abdominal Pain lower, cramping. 7 w eeks , denies any bleeding or spotting Fever states was 102.6 at home, took 1000mg of tylenol at 1930 Reason Comments Rupture of Membranes Reason Comments Abdominal Cramping Reason Comments Fall While playing volley ball, Right wrist and right shoulder pain Care Teams (unrecognized sec tion and content) Working Supervisor Relationship Specialty Start Date End Date Yohana De Leon [address] [place] [address] PCP - General Nurse Practitioner 07/26/20 Scheduled Active and Recently Administ ered Medications (unrecognized section and content) Medication Order 02/26/2021 02/27/2021 02/28/2021 acetaminophen (TYLENOL) tablet 1,000 mg (COMPLETED) 1,000 mg, Oral, ONCE, On Wed02/28/21 at 1245, For 1 dose, Maximum dose of acetaminophen is 4000 mg from all sources in 24 hours., STAT 1232 (Given - Provid er: Salima Olivo RN) Scheduled Medication Order 09/28/2022 09/29/2022 09/30/2022 morphine (PF) injection 4 mg 4 mg, IntraMUSCular, ONCE, 1 dose, On Wed09/30/22 at 0130, If oral and IV narcotics ordered, use oral first and only use IV if oral is ineffective or cannot take oral. Do Not give oral and IV within 1 hour of each other unless specifically ordered. 0205 (Not Given - Pr ovider: Zina Marinelli RN - Reason: Patient/family refused) INFORMATION SOURCE (unrecogn ized section and content) DATE CREATED AUTHOR 05/07/2021 [facility] DATE CREATED AUTHOR AUTHOR'S ORGANIZ ATION 05/08/2021 [facility] dical Specialist DATE CREATED AUTHOR AUTHOR'S ORGANIZ ATION 09/30/2022 [facility] DATE CREATED AUTHOR AUTHOR'S ORGANIZ ATION 09/08/2023 [facility] DATE CREATED AUTHOR AUTHOR'S ORGANIZ ATION 11/01/2023 [facility] dicct Specialists EPIC FOR RECORDS PERTAINING TO PATIENTS WHO ARE OR HAVE BEEN ENROLLED IN A CHEMICAL DEPENDENCY/SUBSTANCEABUSE PROGRAM, SOME INFORMATION MAY BE OMITTED. This clinical summary was aggregated from multiple sources. Caution should be exercised in using it in the provision of clinical care. This summary normalizes information from multiple sources, and as a consequence, information in this document may materially change the coding, format and clinical context of patient data. In addition, data may be omitted in some cases. CLINICAL DECISIONS SHOULD BE BASED ON THE PRIMARY CLINICAL RECORDS. [facility] [employer] provides no warranty or guarantee of the accuracy or completeness of information in this document.
[2023-11-04 11:01] LABS: Amphetamine Screen Urine NEGATIVE (NEGATIVE); Barbiturates Screen Urine NEGATIVE (NEGATIVE); Benzodiazepines Screen Urine NEGATIVE (NEGATIVE); Buprenorphine Screen Urine NEGATIVE (NEGATIVE); Cannabinoid Screen Urine NEGATIVE (NEGATIVE); Cocaine Screen Urine NEGATIVE (NEGATIVE); Methadone Screen Urine NEGATIVE (NEGATIVE); Methamphetamines Screen Urine NEGATIVE (NEGATIVE); Opiate Screen Urine NEGATIVE (NEGATIVE); Oxycodone Screen Urine NEGATIVE (NEGATIVE); Phencyclidine Screen Urine NEGATIVE (NEGATIVE); Tricyclic Antidepressant Urine NEGATIVE (NEGATIVE)
[2023-11-04 11:38] LABS: Hematocrit 37.7 % (36.0-48.0); Hemoglobin 13.1 g/dL (12.0-16.0); Mean Corpuscular HGB Conc 34.7 g/dL (29.9-35.2); Mean Corpuscular Hemoglobin 32.4 pg (26.7-34.0); Mean Corpuscular Volume 93.3 fL (81.0-99.0); Mean Platelet Volume 12.3 fL (9.5-13.5); Platelet Count 146 10^3/uL (150-450); Red Blood Count 4.04 10^6/uL (4.20-5.40); Red Cell Distribution Width 13.8 % (11.0-15.0); White Blood Count 7.6 10^3/uL (4.0-11.0)
[2023-11-04] MEDS: LACTATED RINGER'S SOLUTION 1,000 ML 125 ML IV (11:50)
[2023-11-04] MEDS: PENICILLIN G POTASSIUM 5,000,000 UNIT in 0.9 % SODIUM CHLORIDE 100 ML 200 UNIT IV (11:52)
[2023-11-04 13:23] VITALS: BP 116/68; PULSE 97
--- NOTE | 2023-11-04 14:59 | US_ITS ---
[address] [address] Patient Name: CARLITOS CRAIN MRN: [id number] date: 1990 Sex: F Assigned Patient Location: [facility] Current Patient Location: [facility] Accession/Order Number: [id number] Exam Date: 11/04/2023 15:00 Report Date: 11/04/2023 15:26 At the request of: VERONIKA BOND Procedure: US OB limited Obstetrical ultrasound, limited CLINICAL: questionable presentation TECHNIQUE: Transabdominal obstetrical ultrasound was performed. FINDINGS: There are no prior comparison studies at this institution. FETUS AND PLACENTA: There is a single living intrauterine fetus in vertex presentation with heart rate of 132 beats per minute. Fetus otherwise not evaluated. US/US OB limited IMPRESSION: 1. Single intrauterine fetus in vertex presentation with heart rate of 132 beats per minute. Electronically authenticated by: MIRI DELEON Date: 11/04/2023 15:26
[2023-11-04 16:13] VITALS: BP 111/71; PULSE 87; TEMP 36.8
[2023-11-04] MEDS: PENICILLIN G POTASSIUM 2,500,000 UNIT in 0.9 % SODIUM CHLORIDE 50 ML 100 UNIT IV (16:14)
[2023-11-04 16:15] VITALS: BP 111/71; PULSE 87; TEMP 36.8
[2023-11-04 22:43] VITALS: BP 121/75; PULSE 81; TEMP 36.7
[2023-11-05] VITALS (97 sets, daily range): BP systolic 102–138; BP diastolic 55–89; PULSE 57–93; TEMP 36.5–36.8
[2023-11-05] MEDS: OXYTOCIN/0.9 % SODIUM CHLORIDE 10 UNITS/500 ML PLAST..BAG 6 UNIT IV (01:00)
[2023-11-05] MEDS: PENICILLIN G POTASSIUM 2,500,000 UNIT in 0.9 % SODIUM CHLORIDE 50 ML 100 UNIT IV ×3 (01:08→09:26)
[2023-11-05] MEDS: LACTATED RINGER'S SOLUTION 1,000 ML 125 ML IV ×2 (06:47→07:38)
[2023-11-05] MEDS: ROPIVACAINE HCL/PF 400 MG/200 ML PREMIX 6 MG EPIDURAL (07:30)
[2023-11-05] MEDS: LIDOCAINE HCL 2% PF 100 MG/5 ML VIAL INJ (09:49)
--- NOTE | 2023-11-05 12:40 | PM.OBHP ---
OB - H&P: HPI History of Present Illness Chief complaint: LABOR : 5 Para: 4 Gestational age based on last menstrual period: 39.2 Indications for induction: other (elective ) History of Present Dating criteria: LMP confirmed by 1st trimester US care: good care Ultrasounds: normal 1st trimester US and normal mid trimester US PFSH PFSH Social History Highest level of school completed/degree received: high school graduate Meds Home Medications and Allergies Home Medications ?Medication ?Instructions ?Recorded ?Confirmed ?Type vitamin with calcium 1 tab PO Q24H 11/04/23 11/04/23 History no.72-iron 27 mg-folic acid 1 mg tablet (WesTab Plus) valacyclovir 1 gram tablet 1,000 mg PO DAILY 11/04/23 11/04/23 History Allergies Allergy/AdvReac Type Severity Reaction Status Date / Time Sulfa (Sulfonamide Allergy Severe Rash Verified 11/04/23 10:31 Antibiotics) Exam Constitutional Vital Signs, click to edit/add: Last Vital Signs Temp 98.1 F 11/05/23 09:30 Pulse 80 11/05/23 12:35 Resp 16 11/05/23 09:30 BP 124/69 11/05/23 12:35 O2 Del Method Room Air 11/05/23 01:17
[2023-11-05] MEDS: LIDOCAINE HCL 1% 200 MG/20 ML MDV INJ (13:37)
[2023-11-05] MEDS: OXYTOCIN/0.9 % SODIUM CHLORIDE 20 UNITS/1,000 ML PLAST..BAG 125 UNIT IV (13:37)
--- NOTE | 2023-11-05 13:54 | PM.OBPRCVD ---
Procedure Intrapartal events: None Induction method: per pitocin protocol Delivery augmentation: rupture of membranes Delivery monitor: external FHT and external uterine Route of delivery: Episiotomy Description: none L&D Laceration Description: periurethral - 1st degree and perineal - 1st degree Delivery repair: Vicryl Estimated blood loss (mL): 275 Anesthesia type: Epidural Gender: male presentation: vertex Placental delivery description: Spontaneous cord description: 3 Vessels and Around Body x1 cord description comment: CAN x1 loosely and around armpit. Reduced at delivery heart rate - 1 minute: 100 bpm or Greater respiratory effort - 1 minute: Spontaneous/Strong Cry muscle tone - 1 minute: Active Movement reflex response - 1 minute: Prompt Response color - 1 minute: Bluish Hands or Feet total score - 1 minute: 9 heart rate - 5 minute: 100 bpm or Greater respiratory effort - 5 minute: Spontaneous/Strong Cry muscle tone - 5 minute: Active Movement reflex response - 5 minute: Prompt Response color - 5 minute: Bluish Hands or Feet total score - 5 minute: 9
[2023-11-05] MEDS: BENZOCAINE/MENTHOL 85 GRAM SPRAY BOTTLE 1 APPLIC TOPICAL (16:30)
--- NOTE | 2023-11-05 19:09 | W.PC.ACHO ---
Registration Status: ADM IN Primary Language: Omani Preferred Language: Omani Report given regarding labor & course since delivery. Active Medications Generic Name Dose Route Start Last Admin Trade Name Freq PRN Reason Stop Dose Admin Acetaminophen 500 mg 11/04/23 23:15 Acetaminophen 500 Mg Tablet PO Q6H PRN pain or fever 100.0 Acetaminophen 650 mg 11/05/23 14:04 Acetaminophen 325 Mg Tablet PO Q6H PRN Mild Pain Al Hydroxide/Mg Hydroxide 2,400 mg 11/05/23 14:04 Magnesium Hydroxide 2,400 Mg/10 Ml Oral.Susp PO Q6H PRN Dyspepsia Benzocaine/Menthol 1 applic 11/05/23 14:04 11/05/23 16:30 Benzocaine/Menthol 85 Gram [place] Bottle TOPICAL 1 applic Q2H PRN Administration Pain Calcium Carbonate 500 mg 11/04/23 23:15 Calcium Carbonate 500 Mg (200mg Elemental) Tab Chew PO TID PRN Dyspepsia Carboprost Tromethamine 250 mcg 11/04/23 10:35 Carboprost Tromethamine 250 Mcg/Ml 1 Ml Vial IM 11/06/23 10:35 Q15M PRN Bleeding Diphtheria/Pertussis/Tetanus Vacc 0.5 ml 11/08/23 13:00 Adacel Diph,Pertuss(Acell),Tet Vac/Pf 0.5 Ml Adult Syringe IM 11/08/23 13:01 .ONCE ONE Docusate Sodium 100 mg 11/06/23 09:00 Docusate Sodium 100 Mg Capsule PO BID SREEKANTH Tranexamic Acid 1,000 mg/ 110 mls @ 440 mls/hr 11/04/23 10:35 Sodium Chloride IV 11/06/23 10:35 ONCE PRN Uterine Bleeding Lactated Ringer's 1,000 mls @ 125 mls/hr 11/04/23 11:00 11/05/23 07:38 Lactated Ringers IV 125 mls/hr .Q8H SREEKANTH Administration Oxytocin/Sodium Chloride 10 units in 500 mls @ 6 mls/hr 11/05/23 01:00 11/05/23 12:58 Pitocin 10 Unit/500 Ml-Ns IV Infused TITR SREEKANTH Infusion Protocol 2 MILLIUNIT/MIN Ropivacaine/Sodium Chloride 400 mg in 200 mls @ 6 mls/hr 11/05/23 07:30 11/05/23 07:30 Naropin 0.2% 400 Mg/200 Ml Bag EPIDURAL 6 mls/hr Q24H SREEKANTH Administration Ibuprofen 800 mg 11/05/23 14:15 Ibuprofen 400 Mg Tablet PO Q8H SREEKANTH Lidocaine 5 ml 11/04/23 10:35 Lidocaine Viscous 2% 15 Ml Solution TOPICAL 11/06/23 10:38 ONCE PRN Pain Lidocaine 5 ml 11/05/23 08:36 11/05/23 09:49 Lidocaine Hcl 2% Pf 100 Mg/5 Ml Vial INJ 11/06/23 08:37 2 ml Q1H PRN Administration Pain Measles/Mumps/Rubella Vaccine Live 0.5 ml 11/08/23 13:00 Measles,Mumps,Rubella Vacc/Pf 0.5 Ml Vial SQ 11/08/23 13:01 .ONCE ONE Methylergonovine Maleate 0.2 mg 11/04/23 10:35 Methylergonovine Maleate 0.2 Mg/Ml Ampule IM 11/06/23 10:35 ONCE PRN Uterine Contractility/Contract Methylergonovine Maleate 0.2 mg 11/04/23 10:35 Methylergonovine Maleate 0.2 Mg Tablet PO 11/06/23 10:35 Q4H PRN Uterine Contractility/Contract Misoprostol 600 mcg 11/04/23 10:35 Misoprostol 100 Mcg Tablet PO 11/06/23 10:35 ONCE PRN Uterine Bleeding Misoprostol 800 mcg 11/04/23 10:35 Misoprostol 100 Mcg Tablet SL 11/06/23 10:35 ONCE PRN Uterine Bleeding Misoprostol 1,000 mcg 11/04/23 10:35 Misoprostol 100 Mcg Tablet MN 11/06/23 10:35 ONCE PRN Uterine Bleeding Nalbuphine HCl 10 mg 11/04/23 10:35 Nalbuphine Hcl 10 Mg/Ml Ampule IV Q3H PRN Pain Ondansetron HCl 4 mg 11/04/23 10:35 Ondansetron Pf 4 Mg/2 Ml Vial IV Q6H PRN Nausea And Vomiting Ondansetron HCl 4 mg 11/04/23 10:35 Ondansetron 4 Mg Rapdis Tablet SL Q6H PRN Nausea And Vomiting Oxytocin 10 unit 11/04/23 10:35 Oxytocin 10 Unit/Ml Vial IM 11/06/23 10:35 ONCE PRN Bleeding Senna 17.2 mg 11/05/23 20:00 Sennosides 8.6 Mg Tablet PO QHS PRN Constipation Simethicone 80 mg 11/05/23 14:04 Simethicone 80 Mg Tab.Chew PO QID PRN Abdominal Distention Temazepam 15 mg 11/05/23 14:04 Temazepam 15 Mg Capsule PO QHS PRN Sleep Witch Melinda/Glycerin 1 pad 11/05/23 14:04 Glycerin/Witch Melinda Pads TOPICAL Q2H PRN Pain Zolpidem Tartrate 5 mg 11/04/23 23:15 Zolpidem Tartrate 5 Mg Tablet PO HS PRN Sleep Diet Category Date Time Status Regular Consistency Diet Diet 11/05/23 14:04 Active Respiratory Oxygen Delivery Method Room Air Oxygen Delivery Method Room Air Oxygen Delivery Method Room Air Oxygen Delivery Method Room Air Cardiology Heart Sounds Strong,Regular Catheter Date Urinary Catheter Removed 11/05/23
[2023-11-05] MEDS: IBUPROFEN 400 MG TABLET 800 MG PO (23:52)
[2023-11-06 08:00] VITALS: TEMP 36.4
[2023-11-06] MEDS: IBUPROFEN 400 MG TABLET 800 MG PO ×2 (08:03→16:59)
[2023-11-06 08:04] VITALS: BP 120/60; PULSE 64
[2023-11-06] MEDS: DOCUSATE SODIUM 100 MG CAPSULE PO (08:04)
--- NOTE | 2023-11-06 11:26 | P.OBPN_ITS ---
OB - PN: Subj Subjective Patient comments: no complaints [place] status: doing well Exam Narrative Exam Narrative: HAS SMALL UMBILICAL HERNIA, NOT PROBLEMATIC, OTHERWISE VOICING NO CONCERNS Constitutional Vital Signs, click to edit/add: Last Vital Signs Temp 98.2 F 11/05/23 23:50 Pulse 64 11/06/23 08:04 Resp 16 11/05/23 23:50 BP 120/60 11/06/23 08:04 O2 Del Method Room Air 11/05/23 15:00 Common normals: no apparent distress, average body habitus, oriented x3, no limitations, alert and well nourished General appearance: cooperative, comfortable and well kempt HENMT Common normals: normocephalic and head/scalp atraumatic Eye Pupil: PERRL and accommodation reflex normal Neck & C-Spine Common normals: full ROM Respiratory Common normals: normal respiratory effort Cardio Common normals: regular rate and regular rhythm GI Common normals: Normal to inspection, nondistended, normoactive bowel sounds present (SMALL UMBILICAL HERNIA DEMONSTRATED ON VALSALVA, REDUCES ON OWN AT REST) Common normals: no CVA tenderness Back & Pelvis Common normals: no thoracic nor lumbar tenderness Extremity Common normals: normal to inspection, full ROM and no calf tenderness Neuro Common normals: CN's II-XII intact bilaterally, moves all extremities, no focal motor deficits and no sensory deficits noted Motor exam: strength 5/5 throughout Psych Common normals: mental status grossly normal, thought process normal, cooperative and affect normal OB - PN: A/P Assessment and Plan (1) Normal vaginal delivery: Assessment and Plan: DOING WELL, HAS SMALL UMBILICAL HERNIA WHICH SELF REDUCES WHEN NO VALSALVA, BFEAST FEEDING WITHOUT ISSUE Plan MOM WAS GBS POSITIVE AND BABY NOT READY FOR DISCHARGE, VSS NORMAL, PERINEUM I NTACT WITH SECOND DEGREE REPAIR, TEACHING DONE ON MANAGEMENT OF UMBILICAL HERNIA, ALL QUESTIONS ANSWERED WITH STATED UNDERSTANDING Plan - Vaginal Delivery day: 2 Plan: routine care Time Spent with Patient Time: Total time spent is greater than 50% in coordination of care (as documented) at patient's floor/unit and/or counseling patient: Total time spent with greater than 50% in coordination of care (as documented) at patient's floor/unit and/or counseling patient: less than 15 minutes
[2023-11-06 16:58] VITALS: BP 114/65; PULSE 71
[2023-11-06 17:00] VITALS: BP 114/65; PULSE 71; TEMP 36.8
== END 2023-11-06 19:30 | disposition home or self-care (01) | DRG 560 ==
PROVIDERS: Admitting Provider Midwife; PCP Midwife; Visit Provider Midwife
DX: O99.824 Streptococcus B carrier state complicating childbirth (principal); O70.0 First degree perineal laceration during delivery; Z3A.39 39 weeks gestation of pregnancy; Z37.0 Single live birth
CPT/HCPCS: 36415; 51702; 59050; 59410; 76815; 80307; 85027; 86850; 86900; 86901; 96365; 96366; 96368; 96376; J2540; J2795

== ENCOUNTER 2023-11-10 08:21 | Outpatient (OUT) | payer OTHER, SELFPAY ==
--- OUTSIDE RECORDS SUMMARY | 2023-11-10 08:30 | XMS_ITS | CCD ---
Author Organization [facility] Care Team Providers Care Roaster Operator Name Role Phone Yohana De Leon Primary [...] EJESTHOLLY DUFF Attending Unavailable HIESTANDHOLLY Referring Unavailable EJESTHOLLY DUFF Primary Care Unavailable FLORO, JASMINA L [...] Sulfamethoxazole / Trimethoprim Drug Allergy 2 Rash [facility] (6 sources) Sulfamethoxazole / Trimethoprim; Translations: [SULFAMETHOXAZOLE-TR IMETHOPRIM] Drug Allergy 2 Rash, [facility] (1 source) Sulfamethoxazole / Trimethoprim Drug Allergy 1 [facility] Repository Medications Current Medications Medication Drug [...] significant surrounding subchorionic hemorrhage. Yolk sac visualized. [place] rump length measures 1.9 cm, which corresponds [...] Panel Informationon 09-30 Radiology Study observation (narrative) [facility] XR SHOULDER RIGHT (MIN 2 VIE WS)on [...] Hubert Hoffman MD 09/30/22 Final result Normal [facility] No acute fracture or dislocation clearly identified of the right shoulder. [facility] RIS CONSOLIDATED EXAMINATION: 2 XRAY VIEWS OF THE RIGHT SHOULDER 09/30/2022 12:05 am COMPARISON: None. HISTORY: ORDERING SYSTEM PROVIDED HISTORY: fall TECHNOLOGIST PROVIDED HISTORY: fall Initial evaluation. FINDINGS: No acute osseous abnormality seen of the right shoulder. The glenohumeral and acromioclavicular joints appear maintained without evidence of dislocation. The soft tissues demonstrate no acute abnormality. [facility] CONSOLIDATED Hubert Hoffman MD - 09/30/2022 EXAMINATION: [...] dislocation clearly identified of the right shoulder. [facility] XR WRIST RIGHT (MIN 3 VIEWS) on [...] Hubert Hoffman MD 09/30/22 Final result Normal [facility] 1. Question of cortical irregularity in the region of the scaphoid waist. Suggest correlation with snuffbox tenderness. 2. Otherwise, no acute osseous abnormality seen of the right wrist. [facility] CONSOLIDATED EXAMINATION: 3 XRAY VIEWS OF THE RIGHT WRIST 09/30/2022 12:05 am COMPARISON: None. HISTORY: ORDERING SYSTEM PROVIDED HISTORY: fall TECHNOLOGIST PROVIDED HISTORY: fall Initial evaluation. FINDINGS: There is question of cortical irregularity in the region of the scaphoid waist. Otherwise, the osseous structures appear intact. The joint spaces appear maintained. The soft tissues demonstrate no acute abnormality. [facility] CONSOLIDATED Hubert Hoffman MD - 09/30/2022 EXAMINATION: [...] osseous abnormality seen of the right wrist. [facility] XR WRIST RIGHT (MIN 3 VIEWS) Ordered By: Hubert Hoffman on 09-30-2022 [facility] Work Phone: Hemoglobin A1Con 04-28-2021 EAG 91.06 Normal [facility] Employee Communications Coordinator Comment on above: Performed By: #### A 1C #### [facility] [address] [place], [place] [id number] HbA1c (Bld) [Mass fraction] 4.8 % Normal 4.0-6.0 [facility] Employee Communications Coordinator Comment on above: Performed By: #### A 1C #### [facility] [address] [place], [place] [id number] Q - INSULIN,SERUMon 04-28-19 22 INSULIN 4.0 uIU/mL Normal [facility] Employee Communications Coordinator Comment on above: Order Comment: [facility] Testing performed at: QPT, [facility], [address] [place] [address], [address] [place] [address], [id number], Patch Worker: Kendall Moyer MD [facility] Collection Date/Time: [id number] [facility] Results Received Date/Time: [id number] [facility] Reported Date/Time: [id number] FASTING: NO Result Comment: Refe rence Range < or = 19.6 Risk: Optimal < or = 19.6 Moderate NA High >19.6 Adult cardiovascular event risk category cut points (optimal, moderate, high) are based on [facility] population data from 02/2011. This insulin assay shows strong cross-reactivity for some insulin analogs (lispro, aspart, and glargine) and much lower cross-reactivity with others (detemir, glulisine). Performed By: #### 5 61, 746X, [id number] #### [facility] [address] [place] [address] Q - PROLACTINon 04-28-2021 PROLACTIN 195.3 ng/mL High [facility] Comment on above: Order Comment: [facility] performed at: [facility], [facility], [address] [facility], [address] [place], [address], Patch Worker: Kendall Moyer MD [facility] Collection Date/Time: [facility] Results Received Date/Time: [facility] Reported Date/Time: FASTING: NO Result Comment: Refe rence Range Females Non- 3.0-30.0 10.0-209.0 Postmenopausal 2.0-20.0 Performed By: #### 5 61, 746X, [id number] #### [facility] [address] [place] [address] Q - TESTOSTERONE,FREE (LC/MS /MS)on 04-28-2021 TESTOSTERONE, FREE 1.5 pg/mL Normal 0.2-5.0 [facility] Comment on above: Order Comment: [facility] performed at: [facility], [facility], [address] [address], [place], [place], , Patch Worker: Vince Dan M.D.,PhD [facility] Collection Date/Time: [facility] Results Received Date/Time: [facility] Reported Date/Time: FASTING: NO Result Comment: The concentration of free testosterone is derived from a mathematical model using total testosterone by LCMSMS, sex hormone binding globulin and albumin. This test was developed and its analytical performance characteristics have been determined by [facility] [place], [place]. It has not been cleared or approved by the U.S. Food and Drug Administration. This assay has been validated pursuant to the CLIA regulations and is used for clinical purposes. Performed By: #### 5 61, 746X, [id number] #### [facility] [address] [place] [address] TSH w/ Reflex to Free T4on 0 04-28-2021 TSH 1.490 uIU/mL Normal 0.400-4.500 [facility] Employee Communications Coordinator Comment on above: Performed By: #### T SH reflex FT4 #### [facility] [address] [place], [place] [id number] Microscopic Urinalysison - [facility] Amorphous, UA NOT REPORTED None [facility] Bacteria, UA TRACE Abnormal None [facility] Casts UA NOT REPORTED /LPF [facility] Crystals, UA NOT REPORTED None /HPF [facility] th Epithelial Cells UA 2 TO 5 [facility] Interpretation and review of laboratory results Abnormal [facility] Mucus, UA NOT REPORTED None [facility] Other Observations UA NOT REPORTED NOT REQ. M [facility] RBC, UA 0 TO 2 [facility] Renal Epithelial, UA NOT REPORTED 0 /HPF [facility] Trichomonas, UA NOT REPORTED None [facility] ealt WBC, UA 2 TO 5 [facility] Yeast, UA NOT REPORTED None [facility] Q - SURESWAB HSV 1/2 mRNA TM Aon 02-28-2021 HSV 1 Not detected Normal Not Detected [facility] Employee Communications Coordinator Comment on above: Order Comment: [facility] performed at: [facility], [facility] [address], [place], [place], , Patch Worker: Vince Dan M.D.,PhD [facility] Collection Date/Time: [facility] Results Received Date/Time: [facility] Reported Date/Time: Performed By: #### 9 0570 #### [facility] [address] [place] [address] HSV 2 Not detected Normal Not Detected [facility] Employee Communications Coordinator Comment on above: Order Comment: [facility] performed at: [place], [address] [address], [place], [place], , Patch Worker: Vince Dan M.D.,PhD [facility] Collection Date/Time: [facility] Results Received Date/Time: [id number] [facility] Reported Date/Time: [id number] Performed By: #### 9 0570 #### [facility] [address] [place] [address] Urinalysison 02-28-2021 Bilirubin Urine Negative NEGATIVE [facility] [...] Protein, UA Negative NEGATIVE [facility] Specific [place], UA >1.030 [facility] Turbidity [...] Protein, UA Negative NEGATIVE [facility] [place], UA 1.020 [facility] Turbidity UA Clear Clear [facility] Urinalysis Comments NOT REPORTED [facility] Urine Hgb Negative NEGATIVE [facility] Urobilinogen, Urine Normal Normal [facility]on 12-20 SARS-CoV-2 (COVID-19) RNA FRANK+probe Ql (Unsp spec) Detected Critically abnormal NOT DETECTED [facility] Comment on above: Result Comment: This test is not yet approved or cleared by the [place] FDA. When there are no FDA-approved or cleared tests available, and other criteria are met, FDA can make tests available under an emergency access mechanism called an Emergency Use Authorization (EUA). The EUA for this test is supported by the [place] of Health and Human Service's (HHS's) declaration [...] longer be used). Performed By: #### C [facility], [facility] #### [facility] [address] [address] [address] Milena Chiu ABO, External ResultOrdered By: Rose Marie Hurd on 08-20-2020 ABO, External Result O [employer] C. Trachomatis, External Res [facility] 08-20-2020 C. Trachomatis, External Result Not detected [facility] Phone: HIV, External Resulton 08-20 HIV, External Result Non-Reactive [employer] Phone: Hepatitis B, External Result on 08-20-2020 Hep B, External Result Negative [employer] Phone: N. Gonorrhoeae, External Res ulton 08-20-2020 N. Gonorrhoeae, External Result Not detected [facility] Phone: No Panel InformationOrdered By: Rose Marie Hurd on 08-20-2020 [facility] No Panel Informationon 08-20 [facility] Phone: RPR, External Labon 08-21-19 21 RPR, External Result Non-Reactive [employer] Phone: Rh Factor, External Resulton 08-20-2020 Rh Factor, External Result Positive [facility] Phone: Rubella Titer, External Resu lton 08-20-2020 Rubella Titer, External Result not immune [facility] Phone: COVID-19, RapidOrdered By: Hilaria Brooks on 07-27-2020 SARS-CoV-2 (COVID-19) RNA FRANK+probe Ql (Unsp spec) Not detected Not Detected [facility] Phone: Comment on above: Rapid NAAT: The [...] management decisions. Fact sheet for Healthcare Providers: https://www.fda.gov/media/658007/download Fact sheet for Patients: https://www.fda.gov/media/229020/download Methodology: Isothermal Nucleic Acid Amplification Specimen Description .NASOPHARYNGEAL SWAB [facility] Phone: Rapid influenza A/B antigens Ordered By: Rodrigo Brooks on 07-27-2020 Direct Exam NEGATIVE for Influenza A + B antigens. PCR testing to confirm this result is available upon request. Specimen will be saved in the laboratory for 7 days. Please call [phone] if PCR testing is indicated. [facility] Phone: Special Requests NOT REPORTED [facility] Phone: Specimen Description .NASOPHARYNGEAL SWAB [facility] Phone: CBC auto differentialOrdered By: Rodrigo Brooks on 07-26-2020 Absolute Eos # 0.09 [facility] Work Phone: Absolute Immature Granulocyte <0.03 [facility] Work Phone: Absolute Lymph # 2.93 [facility] Work Phone: Absolute [place] # 0.57 [facility] Work Phone: Basophils (Bld) [#/Vol] 10*3/uL [facility] Work Phone: Basophils/100 WBC (Bld) 0 % 0 - 2 % [facility] Phone: Differential Type NOT REPORTED [facility] Phone: Eosinophils/100 WBC (Bld) 1 % 1 - 4 % [facility] Phone: Hematocrit (Bld) [Volume fraction] 42.1 % 36.3 - 47.1 % [facility] Phone: Hemoglobin.gastrointes tinal spec 1 Ql (Stl) 14.5 g/dL 11.9 - 15.1 g/dL [facility] Phone: Immature granulocytes/100 WBC (Bld) 0 % 0 [facility] Phone: Lymphocytes/100 WBC (Bld) 35 % 24 - 43 % [facility] Phone: MCH (RBC) [Entitic mass] 32.0 pg 25.2 - 33.5 pg [facility] Phone: MCHC (RBC) [Mass/Vol] 34.4 g/dL 28.4 - 34.8 g/dL [facility] Phone: MCV (RBC) [Entitic vol] 92.9 fL 82.6 - 102.9 fL [facility] Phone: Monocytes/100 WBC (Bld) 7 % 3 - 12 % [facility] Phone: NRBC Automated 0.0 0.0 per 100 WBC [facility] Phone: Platelet distribution width (Bld) [Ratio] 12.9 % 11.8 - 14.4 % [facility] Phone: Platelet Estimate NOT REPORTED [facility] Phone: Platelet mean volume (Bld) [Entitic vol] 11.4 fL 8.1 - 13.5 fL [facility] Phone: Platelets (Bld) [#/Vol] 199 10*3/uL [facility] Phone: RBC (Bld) [#/Vol] 4.53 10*6/uL 3.95 - 5.1 1 m/uL [facility] Work Phone: RBC (Bld) [#/Vol] NOT REPORTED [facility] Work Phone: Segmented neutrophils/100 WBC (Bld) 57 % 36 - 65 % [facility] Work Phone: Segs [employer] 4.80 [employer] Work Phone: WBC (Bld) [#/Vol] 8.4 10*3/uL [facility] Work Phone: WBC (Bld) [#/Vol] NOT REPORTED [facility] Work Phone: Comprehensive Metabolic Pane lOrdered By: Rodrigo Brooks on 07-26-2020 Albumin [Mass/Vol] 4.3 g/dL 3.5 - 5.2 g/dL [facility] Phone: Albumin/Globulin [Mass ratio] 1.4 {ratio} [facility] Work Phone: ALP (Bld) [Catalytic activity/Vol] 54 U/L 35 - 104 U/L [facility] Phone: ALT [Catalytic activity/Vol] 17 U/L 5 - 33 U/L [facility] Phone: Anion gap [Moles/Vol] 8 mmol/L Low 9 - 17 mmol/L [facility] Phone: AST [Catalytic activity/Vol] 12 U/L <32 [facility] Phone: Bilirubin [Mass/Vol] 0.27 mg/dL Low 0.3 - 1 .2 mg/dL [facility] Phone: Calcium [Mass/Vol] 9.6 mg/dL 8.6 - 10. 4 mg/dL [facility] Work Phone: Chloride [Moles/Vol] 104 mmol/L 98 - 10 7 mmol/L [facility] Phone: CO2 [Moles/Vol] 25 mmol/L 20 - 31 mmol/L [facility] Phone: Creatinine [Mass/Vol] 0.67 mg/dL 0.50 - 0.90 mg/dL [facility] Phone: Free PSA/Total PSA [Mass fraction] 7.3 g/dL 6.4 - 8.3 g/dL [facility] Phone: GFR >60 >60 mL/min [employer] Phone: GFR Non- >60 >60 mL/min [facility] Phone: Glucose [Mass/Vol] 90 mg/dL 70 - 99 mg/dL [facility] Phone: Interpretation and review of laboratory results Abnormal [facility] Phone: Potassium [Moles/Vol] 3.8 mmol/L 3.7 - 5.3 mmol/L [facility] Phone: Sodium [Moles/Vol] 137 mmol/L 135 - 144 mmol/L [facility] Phone: Urea nitrogen (BldV) [Mass/Vol] 10 mg/dL 6 - 20 mg/dL [facility] Phone: Urea nitrogen/Creatinine (Bld) [Mass ratio] 15 [facility] Phone: Laboratory - Chemistry and C hemistry - challengeOrdered By: Rodrigo Brooks on 07-26-2020 GFR/1.73 sq M.predicted MDRD (S/P/Bld) [Vol rate/Area] [facility] Phone: Comment on above: Average GFR for 30-3 9 years old: 107 mL/min/1.73sq m Chronic Kidney Disease: <60 mL/min/1.73sq m Kidney failure: <15 mL/min/1.73sq m eGFR calculated using average adult body mass. Additional eGFR calculator available at: http://www.[employer]/multiple_crcl_2012.htm Stage 1: Some kidney damage normal GFR Stage 2: Mild kidney damage GFR 60-89 Stage 3: Moderate kidney damage GFR 30-59 Stage 4: Severe kidney damage GFR 15-29 Stage 5: Severe kidney damage GFR <15 ESRD - chronic treatment by dialysis or transplant Lactic Acid, PlasmaOrdered B y: Rodrigo Brooks on 07-26-2020 Lactate [Moles/Vol] 1.8 mmol/L 0.5 - 2. 2 mmol/L [facility] Work Phone: Lactic Acid, Whole Blood NOT REPORTED 0.7 - 2.1 mmol/L [facility] Work Phone: Urinalysis with microscopicO rdered By: Rodrigo Brooks on 07-26-2020 - [facility] Work Phone: Amorphous, UA NOT REPORTED None [employer] Work Phone: Bacteria, UA NOT REPORTED None [employer] Work Phone: Bilirubin Urine Negative NEGATIVE [employer] Work Phone: Casts UA NOT REPORTED /LPF [facility] Work Phone: Color, UA YELLOW YELLOW [facility] Work Phone: Crystals, UA NOT REPORTED None /HPF [employer] Work Phone: Epithelial Cells UA 0 TO 2 [facility] Work Phone: Glucose, Ur Negative NEGATIVE [facility] Work Phone: Ketones Ql (U) Negative NEGATIVE [employer] Work Phone: Leukocyte esterase Test strip Ql (U) Negative NEGATIVE [facility] Work Phone: Mucus, UA NOT REPORTED None [facility] Work Phone: Nitrite, Urine Negative NEGATIVE [facility] Work Phone: Other Observations UA NOT REPORTED NOT REQ. M [facility] [employer] Work Phone: pH, UA 6.0 [facility] [employer] Work Phone: Protein, UA Negative NEGATIVE [facility] [employer] Work Phone: RBC, UA None [facility] [employer] Work Phone: Renal Epithelial, UA NOT REPORTED 0 /HPF [facility] Work Phone: Specific [place], UA 1.010 [facility] [employer] Work Phone: Trichomonas, UA NOT REPORTED None [facility] Work Phone: Turbidity UA CLEAR CLEAR [facility] [employer] Work Phone: Urinalysis Comments NOT REPORTED [facility] [employer] Work Phone: Urine Hgb Negative NEGATIVE [facility] [employer] Work Phone: Urobilinogen, Urine Normal Normal [facility] [employer] Work Phone: WBC, UA None [facility] [employer] Work Phone: Yeast, UA NOT REPORTED None [facility] [employer] Work Phone: Vital Signs Date Time Vital Sign Value Performing Clinician Faci lity 09-29-2022 23:04-0400 Body temperature 98.2 [degF] Michelle Rouse MD Work Phone: [facility] 09-29-2022 23:04-0400 Diastolic blood pressure 89 mm[Hg] Michelle Rouse MD Work Phone: [facility] 09-29-2022 23:04-0400 Heart rate 92 /min Michelle Rouse MD Work Phone: [employer] 09-29-2022 23:04-0400 Respiratory rate 18 /min Michelle Rouse MD Work Phone: [employer] 09-29-2022 23:04-0400 SaO2% (BldA) [Mass fraction] 100 % [facility]ouse MD [facility] 09-29-2022 23:04-0400 Systolic blood pressure 146 mm[Hg] Michelle Rouse MD Work Phone: [facility] 02-28-2021 11:33-0500 Body height 162.6 cm Mounaanaya Neelyelling SLUBBER TENDER - CNM Work Phone: [facility] 02-28-2021 11:33-0500 Body mass index (BMI) [Ratio] 41.2 kg/m2 Mouna Neelyelling SLUBBER TENDER - CNM Work Phone: [facility] 02-28-2021 11:33-0500 Body temperature 97.81 [degF] Mounaanaya Neelyelling SLUBBER TENDER - CNM Work Phone: [facility] 02-28-2021 11:33-0500 Body weight 108.86 kg Mouna Neelyelling SLUBBER TENDER - CNM Work Phone: [facility] 02-28-2021 11:33-0500 Diastolic blood pressure 77 mm[Hg] Mouna Neelyelling SLUBBER TENDER - CNM Work Phone: [facility] 02-28-2021 11:33-0500 Heart rate 96 /min Mouna Neelyelling SLUBBER TENDER - CNM Work Phone: [facility] 02-28-2021 11:33-0500 Respiratory rate 16 /min Mouna Hotelling SLUBBER TENDER - CNM Work Phone: [facility] 02-28-2021 11:33-0500 Systolic blood pressure 120 mm[Hg] Mouna Florindaelling SLUBBER TENDER - CNM Work Phone: [facility] 02-09-2021 02:07-0500 Body temperature 98.01 [degF] Ekaterina Pool SLUBBER TENDER - CNM Work Phone: [facility] 02-09-2021 02:07-0500 Diastolic blood pressure 62 mm[Hg] Ekaterina Pool SLUBBER TENDER - CNM Work Phone: [facility] 02-09-2021 02:07-0500 Heart rate 73 /min Ekaterina Pool SLUBBER TENDER - CNM Work Phone: [facility] 02-09-2021 02:07-0500 Systolic blood pressure 124 mm[Hg[facility] TEND[facility] - CNM Work Phone: [facility] 02-08-2021 22:51-0500 Respiratory rate 16 /min Ekaterina Pool SLUBBER TENDER - CNM Work Phone: [facility] 07-26-2020 23:19-0400 Diastolic blood pressure 54 mm[Hg] Rodrigo Brooks MD Work Phone: [facility] Work Phone: 07-26-2020 23:19-0400 Heart rate 83 /min Rodrigo Brooks MD Work Phone: [facility] Work Phone: 07-26-2020 23:19-0400 SaO2% (BldA) [Mass fraction] 100 % Rodrigo Brooks MD Work Phone: [facility] Work Phone: 07-26-2020 23:19-0400 Systolic blood pressure 132 mm[Hg] Rodrigo Brooks MD Work Phone: [facility] Work Phone: 07-26-2020 20:52-0400 Body temperature 98.2 [degF] Rodrigo Brooks MD Work Phone: [facility] Work Phone: 07-26-2020 20:52-0400 Respiratory rate 17 /min Rodrigo Brooks MD Work Phone: [facility] Work Phone: Encounters Encounter Date Encounter Type Care Provider Facility Start: 11-01-2023 End: 11-01-2023 ambulatory JASMINA L FLORO Not Available Start: 10-27-2023 End: 10-27-2023 ambulatory JASMINA L FLORO Not Available Start: 10-21-2023 End: 10-21-2023 ambulatory JASMINA L FLORO Not Available Start: 10-05-2023 End: 10-05-2023 ambulatory JASMINA L FLORO Not Available Start: 09-20-2023 End: 09-20-2023 ambulatory JASMINA L FLORO Not Available Start: 09-06-2023 End: 09-06-2023 ambulatory [facility] Start: 09-01-2023 End: 09-01-2023 ambulatory [...] 09-30-2022 Emergency department patient visit MICHELLE ROUSE [facility] Start: 09-29-2022 End: 09-30-2022 Emergency department patient visit Michelle Rouse MD Work Phone: [facility] ED Comment on above: Injury of right wris t, initial encounter (Primary Dx) Start: 02-28-2021 End: 02-28-2021 Subsequent hospital visit by physician Mouna Sparks APRN - CNM Work Phone: [facility] Delivery Start: 02-08-2021 End: 02-09-2021 Subsequent hospital visit by physician Ekaterina Wilson APRN - CNEverette Work Phone: [facility] Labor [facility] Delivery Start: 01-02-2021 End: 01-02-2021 ambulatory [facility] Facility: Start: 12-31-2020 End: 12-31-2020 [facility] Facility: Start: 07-26-2020 End: 07-27-2020 Emergency department patient visit Rodrigo Brooks MD Work Phone: [facility] ED Comment on above: Nausea and vomiting, intractability of vomiting not specified, unspecified vomiting type (Primary Dx); Right lower quadrant abdominal pain Procedures Date Procedure Procedure Detail Performing Clinician Start: 09-30-2022 End: 09-30-2022 Radex shoulder complete minimum 2 views Michelle Rouse MD Work Phone: Start: 02-28-2021 Urinalysis microscopic only Mouna Sparks SLUBBER TENDER - CNM Work Phone: Start: 02-28-2021 Urnls dip stick/tabl et rgnt auto w/o microscopy Mouna Sparks SLUBBER TENDER - CNM Work Phone: Start: 02-08-2021 Urnls dip stick/tabl et rgnt auto w/o microscopy Ekaterina Wilson SLUBBER TENDER - CNM Work Phone: Start: 08-20-2020 ABO, EXTERNAL RESULT Ej pérez Provider Start: 08-20-2020 C. TRACHOMATIS, EXTE RNAL RESULT Historical Provider Start: 08-20-2020 HEPATITIS B, EXTERNA L RESULT Historical Provider Start: 08-20-2020 HIV, EXTERNAL RESULT Ej pérez Provider Start: 08-20-2020 N. GONORRHOEAE, EXTE RNAL RESULT [...] in Cervix by Cyto stain Ekaterina Wilson SLUBBER TENDER - CN Work Phone: Plan of Treatment Date Care Activity Detail Author Start: 05-25-2023 End: 05-25-2023 Patient encounter procedure 05/25/2023 4:30 PM EST Routine [facility] [address] [place] [id number] Jasmina Madrid, [facility] [address] [place] [address] [facility] Start: 04-27-2023 End: 04-27-2023 Patient encounter procedure 04/27/2023 4:30 PM EST Routine [facility] [address] [place] [id number] Jasmina Madrid, [facility] [address] [place] [address] Arrived [facility] Comment on above: Arrived Start: 10-20-2022 Influenza vaccination Flu vaccine (# 1) [facility] Start: 11-20-2020 Influenza vaccination [facility] Start: 09-19-2019 Screening for malign ant neoplasm [facility] cervix [facility] Start: 12-16-2018 Screening for malign ant neoplasm of cervix [facility] Start: 2008 DTaP/Tdap/Td vaccine (1 - Tdap) DTaP/Tdap/Td vaccine (1 - Tdap) [facility] Start: 09-19-2007 Hepatitis C screening [facility]atitis C [facility] Start: 2005 COVID-19 Vaccine (1) COVID-19 Vaccin e (1) [facility]: Start: 2001 COVID-19 Vaccine (1) COVID-19 Vaccin e (1) [facility] Start: 2001 Depression Screen Depression Screen [facility] Start: 1994 COVID-19 Vaccine (1) COVID-19 Vaccin e (1) [facility] Start: 1990 Varicella vaccine (1 of 2 - 2-dose childhood series) Varicella vaccine (1 of 2 - 2-dose childhood series) [facility] Start: 03-20-1990 COVID-19 Vaccine (#1) COVID-19 Vacci ne (#1) [facility] Start: 1989 Hepatitis C screening Hepatitis C [facility] End: 02-28-2021 Bacteria identified in Urine by Culture Urine culture Microbiology Routine [facility] Time for 1 Occurrences starting 02/28/2021 until 02/28/2021 [facility] Phone: Comment on above: One Time for 1 Occur rences starting 02/28/2021 until 02/28/2021 Nonrebreather mask oxygen Nonreb reather mask oxygen Respiratory Care Routine As directed - RT (PRN) until discontinued starting 02/08/2021 [facility] Phone: Comment on above: As directed - RT (UT N) until discontinued starting 02/08/2021 Nonrebreather mask oxygen Nonreb reather mask oxygen Respiratory Care Routine As directed - RT (PRN) until discontinued starting 02/28/2021 [facility] Phone: Comment on above: As directed - RT (UT N) until discontinued starting 02/28/2021 End: 02-08-2021 SVE SVE Point of Care Testing Routine One Time for 1 Occurrences starting 02/08/2021 until 02/08/2021 [facility] Phone: Comment on above: One Time for 1 Occur rences starting 02/08/2021 until 02/08/2021 End: 02-28-2021 SVE SVE Point of Care Testing Routine One Time for 1 Occurrences starting 02/28/2021 until 02/28/2021 [facility] Phone: Comment on above: One Time for 1 Occur rences starting 02/28/2021 until 02/28/2021 Payers Date Payer Category Payer Medicaid [employer] [place] [employer] [id number] 2022-Present [address] [place] [address] [id number] 1989 Unknown [id number] 2..840.1.689298.3.579.2.593 1989 Unknown [id number] 2..840.1.847484.3.579.2.593 1989 Unknown [id number] 2.16.840.1.925785.3.579.2.173 1989 Unknown [id number] 2.16840.1.227856.3.579.2.1286 1989 Unknown [id number] 2.16.840.1.151203.3.579.2.1259 1989 Unknown [id number] 2.16.840.1.388787.3.579.2.9 1989 Unknown [id number] 2.16.840.1.808280.3.579.2.1259 1989 Unknown [id number] 2.16.840.1.784282.3.579.2.1259 1989 Unknown [id number] 2.16.840.1.501825.3.579.2.9 1989 Unknown [id number] 2.16.840.1.852287.3.579.2.1258 1989 Unknown [id number] 2.16.840.1.558435.3.579.2.1258 1989 Unknown [id number] 2.16.840.1.733454.3.579.2.1258 1989 Unknown [id number] 2.16.840.1.889555.3.579.2.1258 1989 Unknown [id number] 2.16.840.1.067663.3.579.2.1258 1989 Unknown [id number] 2.16.840.1.229509.3.579.2.1258 1989 Unknown [id number] 2.16.840.1.071392.3.579.2.1258 1989 Unknown [id number] 2.16.840.1.623397.3.579.2.1258 1989 Unknown [id number] 2.16.840.1.233892.3.579.2.9 1959 Unknown [id number] 1.2.840.442029.1.13.239.2.7.3.6 [id number] Social History Date Type Detail Facility Start: 07-26-2020 End: 01-25-2023 Tobacco smoking status [facility] Never smoker [facility] Phone: Start: 07-26-2020 End: 01-25-2023 Tobacco use and exposure Never used [facility] Start: 07-26-2020 End: 02-28-2021 Alcohol intake Current drinker of alcohol (finding) [facility] Phone: Start: 08-11-2018 Alcohol Comment rarely [facility] Phone: Start: 1990 Sex Assigned At Not on file [facility] Work Phone: Exposure to SARS-CoV -2 (event) Not sure [facility] Start: 06-23-2020 [facility] Work Phone: Start: 03-13-2021 Alcohol intake Ex-drinker (finding) [facility] Start: 09-30-2022 [facility] SD[facility] Start: 04-05-2023 Alcohol intake Lifetime non-drinker (finding) [facility] Start: 01-25-2023 History of Social function [facility] Start: 01-25-2023 Tobacco use panel [facility] Start: 01-17-2023 Alcohol Comment caffeine: none [facility] Start: 1990 Sex Assigned At Female [facility] Start: 01-18-2023 Gender identity Identifies as female gender (finding) [facility] Start: 01-18-2023 Sexual orientation Heterosexual (finding) [facility] Telephone encounter Note 05-03-2023 Telephone Encounter - Dhara Ragsdale - 05/03/2023 1:10 PM EST Note Date & Type Note Facility 05-03-2023 Telephone encount er Note Pt is calling to discuss her recent lab s. She has a few questions about them. [facility] Note 05-03-2023 Telephone Encounter - Dhara Ragsdale - 05/03/2023 1:10 PM EST Note Date & Type Note Facility 05-03-2023 Miscellaneous Notes Formattin g of this note might be different from the original. Pt is calling to discuss her recent lab s. She has a few questions about them. documented in this encounter [facility] Hospital Discharge instructions 09-30-2022 Discharge InstructionsAttachments Note [...] cannot be sent through Care Everywhere.Wrist Sprain (Uzbek)documented in this encounter [facility] Discharge instructions 02-28-2021 Instructions Note Date & Type Note Facility 02-28-2021 Hospital Discharg e Salima Kirkland RN - 02/28/[address] Carolina Wilson [facility] Dr. Shalini Camejo CN [address] [facility] [address] [facility] [address] Shalini Saucedo [address] [facility] [address] [phone] Bessy Madrid, MSN, SLUBBER TENDER, CNM [facility] [address] [facility] [address] [address] [facility] [address] Mouna Sparks CN [address] [place] [address] [place] [address] Mary Carmen Mathias CN [address] [place] [address] [place] [address] [phone] ACTIVITY LIMITATIONS: (X )Up and about as [...] AND DELIVERY . documented in this encounter [facility] Phone: History of Present illness Narrative 02-09-2021 [...] at this time. documented in this encounter [facility] Phone: Evaluation note Note Date & Type Note Facility Evaluation note Diagnosis Nausea and vomiting, intractability of vomiting not specified, unspecified vomiting type- Primary Right lower quadrant abdominal pain Abdominal pain, right lower quadrant [facility] [employer] Phone: Evaluation note Note Date & Type Note Facility Evaluation note Diagnosis Abdominal cramps Abdominal pain, unspecified site documented [facility] this encounter [facility] [employer] Phone: Evaluation note Note Date & Type Note Facility Evaluation note Diagnosis Injury of right wrist, initial encounter- Primary documented in this encounter SARAH ALLEN [facility] Discharge instructions Attachments Note Date & Type Note Facility Hospital Discharge instructions The following attachments cannot be sent through Care Everywhere.Abdominal Pain (Uzbek): Abdominal Pain (Uzbek)documented in this encounter [facility] [employer] Phone: Hospital Discharge instructions Instructions Note Date & Type Note Facility Hospital Discharge instructions Dasha Helms RN - 02/09/2021 OUTPATIENT DISCHARGE Demetria Wilson CNM [address] [facility] [address] [place] Bessy Madrid, MSN, SLUBBER TENDER, CNM [address] [place] [address] ACTIVITY LIMITATIONS: ( x )Up and about [...] AND DELIVERY . 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 Relationship Specialty Start Date End Date Yohana De Leon [address] [place] [address] PCP - General Nurse Practitioner 07/26/20 Scheduled [...] and content) DATE CREATED AUTHOR 05/07/2021 [facility] pital DATE CREATED AUTHOR AUTHOR'S ORGANIZ ATION 05/08/2021 [facility] dical Specialist DATE CREATED AUTHOR AUTHOR'S ORGANIZ ATION 09/30/2022 [facility] DATE CREATED AUTHOR AUTHOR'S ORGANIZ ATION 09/08/2023 [facility] DATE CREATED AUTHOR AUTHOR'S ORGANIZ ATION 11/06/2023 [facility] dical Specialists [facility] FOR RECORDS PERTAINING TO PATIENTS WHO ARE [...] BE BASED ON THE PRIMARY CLINICAL RECORDS. [facility] [employer] provides no warranty or guarantee of the accuracy or completeness of information in this document.
--- NOTE | 2023-11-10 16:14 | PC.NURSE ---
Percy and 5 day old Robert arrive for follow up. Parents report being tired and stressed as was transferred [facility] and are finely home to settle in. Mom states is feeling well, no concerns for self at this time. VSS and assessment WNL. Is concerned with milk coming in, as had difficulty with supply with previous child. Today is pumping 5-7 ml of colostrum/milk. Places to breast every 2 hours, feeds 10/10 then releases latch quiet and sleepy. no fussiness, no frantic sucking on hands, he seems content . Infant weight prior to feed 3105 gms and 3120 gms after feed. Increase of 15 gms. Mom wants to continue efforts at this time. States aware may need to supplement her efforts and states has source for breast milk from a close friend. Informal milk sharing discussed and pt comfortable with the risks. Schedules support 11/16/23. Home with .
[2023-11-10 16:17] VITALS: BP 116/78; PULSE 83; TEMP 36.8; O2SAT 97
== END 2023-11-10 16:21 | disposition home or self-care (01) ==
LOC: FBCO 08:22
PROVIDERS: PCP Midwife; Visit Provider Midwife
DX: Z39.2 Encounter for routine postpartum follow-up (principal)

== ENCOUNTER 2023-11-16 08:26 | Outpatient (OUT) | payer OTHER, SELFPAY ==
--- OUTSIDE RECORDS SUMMARY | 2023-11-16 08:46 | XMS_ITS | CCD ---
Author Organization [facility] Care Team Providers Care Appliquer Name Role Phone Yohana De Leon Primary Care Provider [phone] Unavailable Primary Care Provider Unavailabl e FLORO, FYA Primary Care Unavailable MISC, DR SANDOVAL Admitting [...] Sulfamethoxazole / Trimethoprim Drug Allergy 2 Rash [facility] (6 sources) Sulfamethoxazole / Trimethoprim; Translations: [SULFAMETHOXAZOLE-TR IMETHOPRIM] Drug Allergy 2 Rash, [facility] (1 source) Sulfamethoxazole / Trimethoprim Drug Allergy 1 [facility] Repository Medications Current Medications Medication Drug [...] significant surrounding subchorionic hemorrhage. Yolk sac visualized. [place] rump length measures 1.9 cm, which corresponds [...] Panel Informationon 09-30 Radiology Study observation (narrative) [facility] XR SHOULDER RIGHT (MIN 2 [...] Hubert Hoffman MD 09/30/22 Final result Normal [facility] No acute fracture or dislocation clearly identified of the right shoulder. [facility] RIS CONSOLIDATED EXAMINATION: 2 XRAY VIEWS OF THE RIGHT SHOULDER 09/30/2022 12:05 am COMPARISON: None. HISTORY: ORDERING SYSTEM PROVIDED HISTORY: fall TECHNOLOGIST PROVIDED HISTORY: fall Initial evaluation. FINDINGS: No acute osseous abnormality seen of the right shoulder. The glenohumeral and acromioclavicular joints appear maintained without evidence of dislocation. The soft tissues demonstrate no acute abnormality. [facility] CONSOL[facility] Hubert Hoffman MD - 09/30/2022 EXAMINATION: [...] dislocation clearly identified of the right shoulder. [facility] XR WRIST RIGHT (MIN 3 VIEWS) on [...] Hubert Hoffman MD 09/30/22 Final result Normal [facility] 1. Question of cortical irregularity in the region of the scaphoid waist. Suggest correlation with snuffbox tenderness. 2. Otherwise, no acute osseous abnormality seen of the right wrist. [facility] CONSOL[facility] EXAMINATION: 3 XRAY VIEWS OF THE RIGHT WRIST 09/30/2022 12:05 am COMPARISON: None. HISTORY: ORDERING SYSTEM PROVIDED HISTORY: fall TECHNOLOGIST PROVIDED HISTORY: fall Initial evaluation. FINDINGS: There is question of cortical irregularity in the region of the scaphoid waist. Otherwise, the osseous structures appear intact. The joint spaces appear maintained. The soft tissues demonstrate no acute abnormality. [facility] Hubert Hoffman MD - 09/30/2022 EXAMINATION: [...] osseous abnormality seen of the right wrist. [facility] [employer] XR WRIST RIGHT (MIN 3 VIEWS) Ordered By: Hubert Hoffman on 09-30-2022 [employer] Work Phone: Hemoglobin A1Con 04-28-2021 EAG 91.06 Normal [facility] Program Support Assistant Comment on above: Performed By: #### A 1C #### [facility] [address] [place], [place] [id number] HbA1c (Bld) [Mass fraction] 4.8 % Normal 4.0-6.0 [facility] Program Support Assistant Comment on above: Performed By: #### A 1C #### [facility] [address] [place], [place] [id number] Q - INSULIN,SERUMon 04-28-19 22 INSULIN 4.0 uIU/mL Normal [facility] Program Support Assistant Comment on above: Order Comment: [facility] Testing performed at: QPT, [facility], [address] [place] [address], [address] [place] [address], [phone], Retail Support Associate: Kendall Moyer MD [facility] Collection Date/Time: [id number] [facility] Results Received Date/Time: [id number] [facility] Reported Date/Time: [id number] FASTING: NO Result Comment: Refe rence Range < or = 19.6 Risk: Optimal < or = 19.6 Moderate NA High >19.6 Adult cardiovascular event risk category cut points (optimal, moderate, high) are based on [facility] population data from 02/2011. This insulin assay shows strong cross-reactivity for some insulin analogs (lispro, aspart, and glargine) and much lower cross-reactivity with others (detemir, glulisine). Performed By: #### 5 61, 746X, 71574 #### [facility] Default [address] [place] [address] Q - PROLACTINon 04-28-2021 PROLACTIN 195.3 ng/mL High [facility] Comment on above: Order Comment: [facility] performed at: [facility], [facility], [address] [facility], [address] [place], [address], Retail Support Associate: Kendall Moyer MD [facility] Collection Date/Time: [facility] Results Received Date/Time: [facility] Reported Date/Time: FASTING: NO Result Comment: Refe rence Range Females Non- 3.0-30.0 10.0-209.0 Postmenopausal 2.0-20.0 Performed By: #### 5 61, 746X, 27543 #### [facility] [address] [place] [address] Q - TESTOSTERONE,FREE (LC/MS /MS)on 04-28-2021 TESTOSTERONE, FREE 1.5 pg/mL Normal 0.2-5.0 [facility] Comment on above: Order Comment: [facility] performed at: [facility], [facility], [address], [place], [place], , Retail Support Associate: Vince Dan M.D.,PhD [facility] Collection Date/Time: [facility] Results Received Date/Time: [facility] Reported Date/Time: FASTING: NO Result Comment: The concentration of free testosterone is derived from a mathematical model using total testosterone by LCMSMS, sex hormone binding globulin and albumin. This test was developed and its analytical performance characteristics have been determined by [employer] [place], [place]. It has not been cleared or approved by the U.S. Food and Drug Administration. This assay has been validated pursuant to the CLIA regulations and is used for clinical purposes. Performed By: #### 5 61, 746X, 06221 #### [facility] [address] [place] [address] TSH w/ Reflex to Free T4on 0 04-28-2021 TSH 1.490 uIU/mL Normal 0.400-4.500 [facility] Program Support Assistant Comment on above: Performed By: #### T SH reflex FT4 #### [facility] [address] [place], [place] [id number] Microscopic Urinalysison - [facility] Amorphous, UA NOT REPORTED None [facility] Bacteria, UA TRACE Abnormal None [facility] Casts UA NOT REPORTED /LPF [facility] Crystals, UA NOT REPORTED None /HPF [facility] th Epithelial Cells UA 2 TO 5 [facility] Interpretation and review of laboratory results Abnormal [facility] Mucus, UA NOT REPORTED None [facility] Other Observations UA NOT REPORTED NOT REQ. [facility] RBC, UA 0 TO 2 [facility] Renal Epithelial, UA NOT REPORTED 0 /HPF [facility] Trichomonas, UA NOT REPORTED None [facility] ealt WBC, UA 2 TO 5 [facility] Yeast, UA NOT REPORTED None [facility] Q - SURESWAB HSV 1/2 mRNA TM Aon 02-28-2021 HSV 1 Not detected Normal Not Detected [facility] Program Support Assistant Comment on above: Order Comment: [facility] performed at: [facility], [facility] [address], [place], [place], , Retail Support Associate: Vince Dan M.D.,PhD [facility] Collection Date/Time: [facility] Results Received Date/Time: [facility] Reported Date/Time: Performed By: #### 9 0570 #### [facility] [address] [place] [address] HSV 2 Not detected Normal Not Detected [facility] Program Support Assistant Comment on above: Order Comment: [facility] performed at: [facility], [address], [place], [place], , Retail Support Associate: Vince Dan M.D.,PhD [facility] Collection Date/Time: [facility] Results Received Date/Time: [id number] [facility] Reported Date/Time: [id number] Performed By: #### 9 0570 #### [facility] [address] [place] [address] Urinalysison 02-28-2021 Bilirubin Urine Negative NEGATIVE [facility] [...] Protein, UA Negative NEGATIVE [facility] Specific [place], UA >1.030 [facility] Turb[facility] [...] Protein, UA Negative NEGATIVE [facility] [place], UA 1.020 [facility] Turbidity UA Clear Clear [facility] Urinalysis Comments NOT REPORTED [facility] Urine Hgb Negative NEGATIVE [facility] Urobilinogen, Urine Normal Normal [facility]on 12-20 SARS-CoV-2 (COVID-19) RNA FRANK+probe Ql (Unsp spec) Detected Critically abnormal NOT DETECTED [facility] Comment on above: Result Comment: This test is not yet approved or cleared by the [place] FDA. When there are no FDA-approved or cleared tests available, and other criteria are met, FDA can make tests available under an emergency access mechanism called an Emergency Use Authorization (EUA). The EUA for this test is supported by the [place] of Health and Human Service's (HHS's) declaration [...] longer be used). Performed By: #### C [facility] #### [facility] [address] [address] [address] Milena Chiu ABO, External ResultOrdered By: Rose Marie Hurd on 08-20-2020 ABO, External Result [employer] C. Trachomatis, External Res [facility] 08-20-2020 C. Trachomatis, External Result Not detected [employer] Phone: HIV, External Resulton 08-20 HIV, External Result Non-Reactive [employer] Phone: Hepatitis B, External Result on 08-20-2020 Hep B, External Result Negative [employer] Phone: N. Gonorrhoeae, External Res ulton 08-20-2020 N. Gonorrhoeae, External Result Not detected [employer] Phone: No Panel InformationOrdered By: Rose Marie Hurd on 08-20-2020 [employer] No Panel Informationon 08-20 [employer] Phone: RPR, External Labon 08-21-19 21 RPR, External Result Non-Reactive [employer] Phone: Rh Factor, External Resulton 08-20-2020 Rh Factor, External Result Positive [employer] Phone: Rubella Titer, External Resu lton 08-20-2020 Rubella Titer, External Result not immune [employer] Phone: COVID-19, RapidOrdered By: Hilaria Brooks on 07-27-2020 SARS-CoV-2 (COVID-19) RNA FRANK+probe Ql (Unsp spec) Not detected Not Detected [employer] Phone: Comment on above: Rapid NAAT: The [...] management decisions. Fact sheet for Healthcare Providers: https://www.fda.gov/media/732735/download Fact sheet for Patients: https://www.fda.gov/media/455247/download Methodology: Isothermal Nucleic Acid Amplification Specimen Description .NASOPHARYNGEAL SWAB [employer] Phone: Rapid influenza A/B antigens Ordered By: Rodrigo Brooks on 07-27-2020 Direct Exam NEGATIVE for Influenza A + B antigens. PCR testing to confirm this result is available upon request. Specimen will be saved in the laboratory for 7 days. Please call [phone] if PCR testing is indicated. [employer] Phone: Special Requests NOT REPORTED [employer] Phone: Specimen Description .NASOPHARYNGEAL SWAB [employer] Phone: CBC auto differentialOrdered By: Rodrigo Brooks on 07-26-2020 [employer]os # 0.09 [employer] [facility] Work Phone: Absolute Immature Granulocyte <0.03 [employer] Work Phone: Absolute Lymph # 2.93 [employer] [facility] Work Phone: Absolute [place] # 0.57 [employer] [facility] Work Phone: Basophils (Bld) [#/Vol] 10*3/uL [employer] Work Phone: Basophils/100 WBC (Bld) 0 % 0 - 2 % [employer] Phone: Differential Type NOT REPORTED [employer] Phone: Eosinophils/100 WBC (Bld) 1 % 1 - 4 % [employer] Phone: Hematocrit (Bld) [Volume fraction] 42.1 % 36.3 - 47.1 % [employer] Phone: Hemoglobin.gastrointes tinal spec 1 Ql (Stl) 14.5 g/dL 11.9 - 15.1 g/dL [employer] Phone: Immature granulocytes/100 WBC (Bld) 0 % 0 [employer] Phone: Lymphocytes/100 WBC (Bld) 35 % 24 - 43 % [employer] Phone: MCH (RBC) [Entitic mass] 32.0 pg 25.2 - 33.5 pg [employer] Phone: MCHC (RBC) [Mass/Vol] 34.4 g/dL 28.4 - 34.8 g/dL [employer] Phone: MCV (RBC) [Entitic vol] 92.9 fL 82.6 - 102.9 fL [employer] Phone: Monocytes/100 WBC (Bld) 7 % 3 - 12 % [employer] Phone: NRBC Automated 0.0 0.0 per 100 WBC [employer] Phone: Platelet distribution width (Bld) [Ratio] 12.9 % 11.8 - 14.4 % [employer] Phone: Platelet Estimate NOT REPORTED [employer] Phone: Platelet mean volume (Bld) [Entitic vol] 11.4 fL 8.1 - 13.5 fL [employer] Phone: Platelets (Bld) [#/Vol] 199 10*3/uL [employer] Phone: RBC (Bld) [#/Vol] 4.53 10*6/uL 3.95 - 5.1 1 m/uL [employer] Work Phone: RBC (Bld) [#/Vol] NOT REPORTED [employer] Work Phone: Segmented neutrophils/100 WBC (Bld) 57 % 36 - 65 % [employer] Work Phone: Segs Absolute 4.80 [employer] Work Phone: WBC (Bld) [#/Vol] 8.4 10*3/uL [employer] Work Phone: WBC (Bld) [#/Vol] NOT REPORTED [employer] Work Phone: Comprehensive Metabolic Pane lOrdered By: Rodrigo Brooks on 07-26-2020 Albumin [Mass/Vol] 4.3 g/dL 3.5 - 5.2 g/dL [employer] Phone: Albumin/Globulin [Mass ratio] 1.4 {ratio} [employer] Work Phone: ALP (Bld) [Catalytic activity/Vol] 54 U/L 35 - 104 U/L [employer] Phone: ALT [Catalytic activity/Vol] 17 U/L 5 - 33 U/L [employer] Phone: Anion gap [Moles/Vol] 8 mmol/L Low 9 - 17 mmol/L [employer] Phone: AST [Catalytic activity/Vol] 12 U/L <32 [employer] Phone: Bilirubin [Mass/Vol] 0.27 mg/dL Low 0.3 - 1 .2 mg/dL [employer] Phone: Calcium [Mass/Vol] 9.6 mg/dL 8.6 - 10. 4 mg/dL [employer] Work Phone: Chloride [Moles/Vol] 104 mmol/L 98 - 10 7 mmol/L [employer] Phone: CO2 [Moles/Vol] 25 mmol/L 20 - 31 mmol/L [employer] Phone: Creatinine [Mass/Vol] 0.67 mg/dL 0.50 - 0.90 mg/dL [employer] Phone: Free PSA/Total PSA [Mass fraction] 7.3 g/dL 6.4 - 8.3 g/dL [employer] Phone: GFR >60 >60 mL/min [employer] Phone: GFR Non- >60 >60 mL/min [employer] Phone: Glucose [Mass/Vol] 90 mg/dL 70 - 99 mg/dL [employer] Phone: Interpretation and review of laboratory results Abnormal [employer] Phone: Potassium [Moles/Vol] 3.8 mmol/L 3.7 - 5.3 mmol/L [employer] Phone: Sodium [Moles/Vol] 137 mmol/L 135 - 144 mmol/L [employer] Phone: Urea nitrogen (BldV) [Mass/Vol] 10 mg/dL 6 - 20 mg/dL [employer] Phone: Urea nitrogen/Creatinine (Bld) [Mass ratio] 15 [employer] Phone: Laboratory - Chemistry and C hemistry - challengeOrdered By: Rodrigo Brooks on 07-26-2020 GFR/1.73 sq M.predicted MDRD (S/P/Bld) [Vol rate/Area] [employer] Phone: Comment on above: Average GFR for 30-3 9 years old: 107 mL/min/1.73sq m Chronic Kidney Disease: <60 mL/min/1.73sq m Kidney failure: <15 mL/min/1.73sq m eGFR calculated using average adult body mass. Additional eGFR calculator available at: http://www.[employer].My 1%/multiple_crcl_2012.htm Stage 1: Some kidney damage normal GFR Stage 2: Mild kidney damage GFR 60-89 Stage 3: Moderate kidney damage GFR 30-59 Stage 4: Severe kidney damage GFR 15-29 Stage 5: Severe kidney damage GFR <15 ESRD - chronic treatment by dialysis or transplant Lactic Acid, PlasmaOrdered B y: Rodrigo Brooks on 07-26-2020 Lactate [Moles/Vol] 1.8 mmol/L 0.5 - 2. 2 mmol/L [employer] Work Phone: Lactic Acid, Whole Blood NOT REPORTED 0.7 - 2.1 mmol/L [employer] Work Phone: Urinalysis with microscopicO rdered By: Rodrigo Brooks on 07-26-2020 - [employer] Work Phone: Amorphous, UA NOT REPORTED None [employer] Work Phone: Bacteria, UA NOT REPORTED None [employer] Work Phone: Bilirubin Urine Negative NEGATIVE [employer] Work Phone: Casts UA NOT REPORTED /LPF [employer] Work Phone: Color, UA YELLOW YELLOW [employer] Work Phone: Crystals, UA NOT REPORTED None /HPF [employer] Work Phone: Epithelial Cells UA 0 TO 2 [employer] Work Phone: Glucose, Ur Negative NEGATIVE [employer] Work Phone: Ketones Ql (U) Negative NEGATIVE [employer] Work Phone: Leukocyte esterase Test strip Ql (U) Negative NEGATIVE [employer] Work Phone: Mucus, UA NOT REPORTED None [employer] Work Phone: Nitrite, Urine Negative NEGATIVE [facility] Work Phone: Other Observations UA NOT REPORTED NOT REQ. M [facility] [employer] Work Phone: pH, UA 6.0 [facility] [employer] Work Phone: Protein, UA Negative NEGATIVE [facility] [employer] Work Phone: RBC, UA None [facility] [employer] Work Phone: Renal Epithelial, UA NOT REPORTED 0 /HPF [facility] [employer] Work Phone: Specific [place], UA 1.010 [facility] [employer] Work Phone: Trichomonas, UA NOT REPORTED None [facility] Work Phone: Turbidity UA CLEAR CLEAR [facility] [employer] Work Phone: Urinalysis Comments NOT REPORTED [facility] [employer] Work Phone: Urine Hgb Negative NEGATIVE [facility] [employer] Work Phone: Urobilinogen, Urine Normal Normal [facility] [employer] Work Phone: WBC, UA None [facility] [employer] Work Phone: Yeast, UA NOT REPORTED None [facility] [employer] Work Phone: Vital Signs Date Time Vital Sign Value Performing Clinician Faci [employer]ity 09-29-2022 23:04-0400 Body temperature 98.2 [degF] Michelle Rouse MD Work Phone: [employer] 09-29-2022 23:04-0400 Diastolic blood pressure 89 mm[Hg] Michelle Rouse MD Work Phone: [employer] 09-29-2022 23:04-0400 Heart rate 92 /min Michelle Rouse MD Work Phone: [facility] [employer] 09-29-2022 23:04-0400 Respiratory rate 18 /min Michelle Rouse MD Work Phone: [facility] [employer] 09-29-2022 23:04-0400 SaO2% (BldA) [Mass fraction] 100 % Michelle Rouse MD Work Phone: [facility] 09-29-2022 23:04-0400 Systolic blood pressure 146 mm[Hg] Michelle Rouse MD Work Phone: [facility] 02-28-2021 11:33-0500 Body height 162.6 cm Mounaanaya Neelyelling ROADABILITY MACHINE OPERATOR - CNM Work Phone: [email or web address] 02-28-2021 11:33-0500 Body mass index (BMI) [Ratio] 41.2 kg/m2 Mouna Neelyelling ROADABILITY MACHINE OPERATOR - CNM Work Phone: [email or web address] 02-28-2021 11:33-0500 Body temperature 97.81 [degF] Mounaanaya Neelyelling ROADABILITY MACHINE OPERATOR - CNM Work Phone: [email or web address] 02-28-2021 11:33-0500 Body weight 108.86 kg Mouna Neelyelling ROADABILITY MACHINE OPERATOR - CNM Work Phone: [email or web address] 02-28-2021 11:33-0500 Diastolic blood pressure 77 mm[Hg] Mouna Neelyelling ROADABILITY MACHINE OPERATOR - CNM Work Phone: [email or web address] 02-28-2021 11:33-0500 Heart rate 96 /min Mouna Neelyelling ROADABILITY MACHINE OPERATOR - CNM Work Phone: [email or web address] 02-28-2021 11:33-0500 Respiratory rate 16 /min Mouna Hotelling ROADABILITY MACHINE OPERATOR - CNM Work Phone: [email or web address] 02-28-2021 11:33-0500 Systolic blood pressure 120 mm[Hg] Mouna Florindaelling ROADABILITY MACHINE OPERATOR - CNM Work Phone: [email or web address] 02-09-2021 02:07-0500 Body temperature 98.01 [degF] Ekaterina Pool ROADABILITY MACHINE OPERATOR - CNM Work Phone: [email or web address] 02-09-2021 02:07-0500 Diastolic blood pressure 62 mm[Hg] Ekaterina Pool ROADABILITY MACHINE OPERATOR - CNM Work Phone: [employer] 02-09-2021 02:07-0500 Heart rate 73 /min Ekaterina Pool ROADABILITY MACHINE OPERATOR - CNM Work Phone: [employer] 02-09-2021 02:07-0500 Systolic blood pressure 124 mm[Hg] [facility] ROAD[facility] MACHINE OPERATOR - CNM Work Phone: [employer] 02-08-2021 22:51-0500 Respiratory rate 16 /min Ekaterina Pool ROADABILITY MACHINE OPERATOR - CNM Work Phone: [employer] 07-26-2020 23:19-0400 Diastolic blood pressure 54 mm[Hg] Rodrigo Brooks MD Work Phone: [employer] Work Phone: 07-26-2020 23:19-0400 Heart rate 83 /min Rodrigo Brooks MD Work Phone: [employer] Work Phone: 07-26-2020 23:19-0400 SaO2% (BldA) [Mass fraction] 100 % Rodrigo Brooks MD Work Phone: [employer] Work Phone: 07-26-2020 23:19-0400 Systolic blood pressure 132 mm[Hg] Rodrigo Brooks MD Work Phone: [employer] Work Phone: 07-26-2020 20:52-0400 Body temperature 98.2 [degF] Rodrigo Brooks MD Work Phone: [employer] Work Phone: 07-26-2020 20:52-0400 Respiratory rate 17 /min Rodrigo Brooks MD Work Phone: [employer] Work Phone: Encounters Encounter Date Encounter [...] Not Available Start: 09-06-2023 End: 09-06-2023 ambulatory [facility] Start: 09-01-2023 End: 09-01-2023 [...] 09-30-2022 Emergency department patient visit MICHELLE ROUSE [facility] Start: 09-29-2022 End: 09-30-2022 Emergency department patient visit Michelle Rouse MD Work Phone: [facility] ED Comment on above: Injury of right wris t, initial encounter (Primary Dx) Start: 02-28-2021 End: 02-28-2021 Subsequent hospital visit by physician Mouna Sparks APRN - CNM Work Phone: [facility] Labor [facility] Delivery Start: 02-08-2021 End: 02-09-2021 Subsequent hospital visit by physician Ekaterina Wilson APRN - CNEverette Work Phone: [facility] Labor [facility] Delivery Start: 01-02-2021 End: 01-02-2021 ambulatory [facility] Facility: Start: 12-31-2020 End: 12-31-2020 [facility] Facility: Start: 07-26-2020 End: 07-27-2020 Emergency department patient visit Rodrigo Brooks MD Work Phone: [facility] ED Comment on above: Nausea and vomiting, intractability of vomiting not specified, unspecified vomiting type (Primary Dx); Right lower quadrant abdominal pain Procedures Date Procedure Procedure Detail Performing Clinician Start: 09-30-2022 End: 09-30-2022 Radex shoulder complete minimum 2 views Michelle Rouse MD Work Phone: Start: 02-28-2021 Urinalysis microscopic only Mouna Sparks ROADABILITY MACHINE OPERATOR - CNM Work Phone: Start: 02-28-2021 Urnls dip stick/tabl et rgnt auto w/o microscopy Mouna Sparks ROADABILITY MACHINE OPERATOR - CNM Work Phone: Start: 02-08-2021 Urnls dip stick/tabl et rgnt auto w/o microscopy Ekaterina Wilson ROADABILITY MACHINE OPERATOR - CNM Work Phone: Start: 08-20-2020 ABO, [...] in Cervix by Cyto stain Ekaterina Wilson ROADABILITY MACHINE OPERATOR - CN Work Phone: Plan of Treatment Date Care Activity Detail Author Start: 05-25-2023 End: 05-25-2023 Patient encounter procedure 05/25/2023 4:30 PM EST Routine [facility] [address] [place] [id number] Jasmina Madrid, [facility] [address] [place] [address] [facility] Start: 04-27-2023 End: 04-27-2023 Patient encounter procedure 04/27/2023 4:30 PM EST Routine [facility] [address] [place] [id number] Jasmina Madrid, [facility] [address] [place] [address] Arrived [facility] Comment on above: Arrived Start: 10-20-2022 Influenza vaccination Flu vaccine (# 1) [facility] Start: 11-20-2020 Influenza vaccination [facility] Start: 09-19-2019 Screening for malign ant neoplasm of cervix [email or web address] Start: 12-16-2018 Screening for malign ant neoplasm of cervix [facility] [employer] Start: 2008 DTaP/Tdap/Td vaccine (1 - Tdap) DTaP/Tdap/Td vaccine (1 - Tdap) [facility] Start: 09-19-2007 Hepatitis C screening [facility] [employer] Start: 2005 COVID-19 Vaccine (1) COVID-19 Vaccin e (1) [facility] Phone: Start: 2001 COVID-19 Vaccine (1) COVID-19 Vaccin e (1) [email or web address] Start: 2001 Depression Screen Depression Screen [facility] Start: 1994 COVID-19 Vaccine (1) COVID-19 Vaccin e (1) [email or web address] Start: 1990 Varicella vaccine (1 of 2 - 2-dose childhood series) Varicella vaccine (1 of 2 - 2-dose childhood series) [email or web address] Start: 03-20-1990 COVID-19 Vaccine (#1) COVID-19 Vacci ne (#1) [facility] Start: 1989 Hepatitis C screening Hepatitis C [facility] [employer] End: 02-28-2021 Bacteria identified in Urine by Culture Urine culture Microbiology Routine One Time for 1 Occurrences starting 02/28/2021 until 02/28/2021 [employer]: Comment on above: One Time for 1 Occur rences starting 02/28/2021 until 02/28/2021 Nonrebreather mask oxygen Nonreb reather mask oxygen Respiratory Care Routine As directed - RT (PRN) until discontinued starting 02/08/2021 [employer]: Comment on above: As directed - RT (NC N) until discontinued starting 02/08/2021 Nonrebreather mask oxygen Nonreb reather mask oxygen Respiratory Care Routine As directed - RT (PRN) until discontinued starting 02/28/2021 [employer]: Comment on above: As directed - RT (NC N) until discontinued starting 02/28/2021 End: 02-08-2021 SVE SVE Point of Care Testing Routine One Time for 1 Occurrences starting 02/08/2021 until 02/08/2021 [employer]: Comment on above: One Time for 1 Occur rences starting 02/08/2021 until 02/08/2021 End: 02-28-2021 SVE SVE Point of Care Testing Routine One Time for 1 Occurrences starting 02/28/2021 until 02/28/2021 [employer]: Comment on above: One Time for 1 Occur rences starting 02/28/2021 until 02/28/2021 Payers Date Payer Category Payer Medicaid [employer] [place] [employer] [id number] 2022-Present [address] [place] [address] [id number] 1989 Unknown [id number] 2..[id number] 1989 Unknown [id number] 2..840.1.797152.3.579.2.593 1989 Unknown [id number] 2.16.840.1.909437.3.579.2.173 1989 Unknown [id number] 2.16840.1.835601.3.579.2.1286 1989 Unknown [id number] 2.16.840.1.154656.3.579.2.1259 1989 Unknown [id number] 2.16.840.1.671263.3.579.2.9 1989 Unknown [id number] 2.16.840.1.820069.3.579.2.1259 1989 Unknown [id number] 2.16.840.1.469526.3.579.2.1259 1989 Unknown [id number] 2.16.840.1.851494.3.579.2.9 1989 Unknown [id number] 2.16.840.1.430411.3.579.2.1258 1989 Unknown [id number] 2.16.840.1.145013.3.579.2.1258 1989 Unknown [id number] 2.16.840.1.221698.3.579.2.1258 1989 Unknown [id number] 2.16.840.1.843448.3.579.2.1258 1989 Unknown [id number] 2.16.840.1.742363.3.579.2.1258 1989 Unknown [id number] 2.16.840.1.268787.3.579.2.1258 1989 Unknown [id number] 2.16.840.1.991106.3.579.2.1258 1989 Unknown [id number] 2.16.840.1.177322.3.579.2.1258 1989 Unknown [id number] 2.16.840.1.486325.3.579.2.9 1959 Unknown [id number] 1.2.840.457761.1.13.239.2.7.3.6 [id number] Social History Date Type Detail Facility Start: 07-26-2020 End: 01-25-2023 Tobacco smoking status [facility] Never smoker [employer]: Start: 07-26-2020 End: 01-25-2023 Tobacco use and exposure Never used [employer] Start: 07-26-2020 End: 02-28-2021 Alcohol intake Current drinker of alcohol (finding) [employer] Phone: Start: 08-11-2018 Alcohol Comment rarely [employer]: Start: 1990 Sex Assigned At Not on file [facility] Work Phone: Exposure to SARS-CoV -2 (event) Not sure [employer] Start: 06-23-2020 [employer] Work Phone: Start: 03-13-2021 Alcohol intake Ex-drinker (finding) [employer] Start: 09-30-2022 History SDOH Alcohol [facility] Start: 04-05-2023 Alcohol intake Lifetime non-drinker (finding) [facility] Start: 01-25-2023 History of Social function [facility] Start: 01-25-2023 Tobacco use panel [facility] Start: 01-17-2023 Alcohol Comment caffeine: none [facility] Start: 1990 Sex Assigned At Female [facility] Start: 01-18-2023 Gender identity Identifies as female gender (finding) [facility] Start: 01-18-2023 Sexual orientation Heterosexual (finding) [facility] Telephone encounter Note 05-03-2023 Telephone Encounter - Dhara Ragsdale - 05/03/2023 1:10 PM EST Note Date & Type Note Facility 05-03-2023 Telephone encount er Note Pt is calling to discuss her recent lab s. She has a few questions about them. [facility] Note 05-03-2023 Telephone Encounter - Dhara Ragsdale - 05/03/2023 1:10 PM EST Note Date & Type Note Facility 05-03-2023 Miscellaneous Notes Formattin g of this note might be different from the original. Pt is calling to discuss her recent lab s. She has a few questions about them. documented in this encounter [facility] Discharge instructions 09-30-2022 Discharge InstructionsAttachments Note [...] cannot be sent through Care Everywhere.Wrist Sprain (Montserratian)documented in this encounter [facility] Discharge instructions 02-28-2021 Instructions Note Date & Type Note Facility 02-28-2021 Hospital Discharg e Salima Kirkland RN - 02/28/[address] Carolina Wilson [facility] Dr. Shalini Camejo CN [address] [facility] [address] [facility] [address] [place] [address] [place] [address] Shalini Saucedo CN [address] [facility] [address] [phone] Bessy Madrid, MSN, ROADABILITY MACHINE OPERATOR, CNM [facility] [address] [facility] [address] [address] Hodgson [address] [facility] [address] Mouna Sparks CN [address] [place] [address] [place] [address] Mary Carmen Mathias CN [address] [place] [address] [place] [address] [phone] ACTIVITY LIMITATIONS: (X )Up and about as [...] AND DELIVERY . documented in this encounter [employer]: History of Present illness Narrative 02-09-2021 [...] at this time. documented in this encounter [employer]: Evaluation note Note Date & Type Note Facility Evaluation note Diagnosis Nausea and vomiting, intractability of vomiting not specified, unspecified vomiting type- Primary Right lower quadrant abdominal pain Abdominal pain, right lower quadrant documented [facility] this encounter [facility] Phone: Evaluation note Note Date & Type Note Facility Evaluation note Diagnosis Abdominal cramps Abdominal pain, unspecified site documented in this encounter [facility] Phone: Evaluation note Note Date & Type Note Facility Evaluation note Diagnosis Injury of right wrist, initial encounter- Primary documented in this encounter SARAH ALLEN [facility] Discharge instructions Attachments Note Date & Type Note Facility Hospital Discharge instructions The following attachments cannot be sent through Care Everywhere.Abdominal Pain (Montserratian): Abdominal Pain (Montserratian)documented in this encounter [facility] Phone: Hospital Discharge instructions Instructions Note Date & Type Note Facility Hospital Discharge instructions Dasha Helms RN - 02/09/2021 OUTPATIENT DISCHARGE Demetria Wilson CNM [address] [facility] [address] [place] Bessy Madrid, MSN, ROADABILITY MACHINE OPERATOR, CNM [address] [place] [address] ACTIVITY LIMITATIONS: ( x )Up and about [...] AND DELIVERY . 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 Expl anation ACP-Advance Directive ACP-Power of Grass Farmer Latest Code Status on File Code Status [...] Care Teams (unrecognized sec tion and content) Appliquer Relationship Specialty Start Date End Date Yohana De Leon [address] [place] [address] PCP - General Nurse Practitioner 07/26/20 Scheduled [...] and content) DATE CREATED AUTHOR 05/07/2021 [facility] pital DATE CREATED AUTHOR AUTHOR'S ORGANIZ ATION 05/08/2021 [facility] dical Specialist DATE CREATED AUTHOR AUTHOR'S ORGANIZ ATION 09/30/2022 [facility] DATE CREATED AUTHOR AUTHOR'S ORGANIZ ATION 09/08/2023 [facility] DATE CREATED AUTHOR AUTHOR'S ORGANIZ ATION 11/06/2023 [facility] dical Specialists [facility] FOR RECORDS PERTAINING TO PATIENTS WHO ARE [...] BE BASED ON THE PRIMARY CLINICAL RECORDS. [facility] [employer] provides no warranty or guarantee of the accuracy or completeness of information in this document.
--- NOTE | 2023-11-16 10:25 | PC.NURSE ---
Percy and 11 day old Robert arrive for follow up support. Percy states not sure how this breast feeding thing is going Describes baby going to breast, has weak suck and flutters, not sure if I hear him swallowing much . Started giving 15 ml donor milk after feeds yesterday, just felt he wasn't getting much Robert to scales, baby weight down 4.5 oz from last weight. Mom tearful, it is happening again References previous efforts at breast feeding. Baby to breast, latches well, few swallows, flutter sucks and weak effort while at breast. Discussed benefits of allowing infant to suckle at breast for both mom and baby, while understanding supplementation should occur with each feeding. States has donor milk currently and but will need to use formula at some point. Asks about goat milk based formula and formula from [place]. discussed pro's and con's of both Pt satisfied with discussion. Pt tearful today states I knew in my heart it wasn't working, Just wanted to breastfeed one baby completely. Will return 11/23/2023 for another weight check and support. Leaves ambulatory.
== END 2023-11-16 10:33 | disposition home or self-care (01) ==
PROVIDERS: PCP Midwife; Visit Provider Midwife
DX: Z39.1 Encounter for care and examination of lactating mother (principal)
CPT/HCPCS: G0463

== ENCOUNTER 2023-11-23 08:47 | Outpatient (OUT) | payer OTHER, SELFPAY ==
--- NOTE | 2023-11-23 14:12 | PC.NURSE ---
Percy and Robert arrive for support. Last visit infant had lost weight when mom was only placing to breast. Mom has history of low supply and not being able to fully breastfeed. Returns today with new plan, strict pumping schedule and bottle feeding infant with her own milk and donor milk. Percy pumping total of 8 oz in 24 hours. Baby eats every 2-3 hours and is taking 2 oz each feed. States like this better, takes the guess work out of how much I am making and giving hime Has been using 17mm flanges, resized at 19mm flanges. will start usin the large flange and observe impact on supply. Will return 12/06/2023 for weight check and supply check. Home happy with pumping. Infant weight today is 6-13.
== END 2023-11-23 13:35 | disposition home or self-care (01) ==
LOC: FBCO 08:48
PROVIDERS: PCP Midwife; Visit Provider Midwife
DX: Z39.1 Encounter for care and examination of lactating mother (principal)